=== PATIENT | female | born 2000 | race Caucasian/White ===

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

== ENCOUNTER 2019-02-27 13:26 | Emergency (ER) | payer OTHER ==
[2019-02-27 13:38] VITALS: BP 119/74; PULSE 99; RESP 20; TEMP 98.7
--- NOTE | 2019-02-27 14:32 | XR ---
EXAMINATION TYPE: XR chest 2V DATE OF EXAM: 02/27/2019 COMPARISON: 04/14/2017 HISTORY: Cough and congestion TECHNIQUE: Frontal and lateral views of the chest are obtained. FINDINGS: There is no focal air space opacity, pleural effusion, or pneumothorax seen. The cardiac silhouette size is within normal limits. The osseous structures are intact. IMPRESSION: No acute cardiopulmonary process.
[2019-02-27] MEDS ORDERED: DEXAMETHASONE 4 MG TAB PO STA (15:11)
--- NOTE | 2019-02-27 15:15 | ED ---
General Adult HPI - General Chief complaint: Upper Respiratory Infection Stated complaint: Cold symptoms Time Seen by Provider: 02/27/19 13:39 Source: patient, RN notes reviewed Mode of arrival: ambulatory Limitations: no limitations - History of Present Illness Initial comments: 18-year-old female presents to the emergency department for chief Cough co ngestion and sore throat 4 days. Patient denies any difficulty breathing or shortness of breath. Denies any chest pain. States she does have a productive cough. Patient does admit to history of asthma. Denies fevers or chills.Patient has no other complaints at this time including shortness of breath, chest pain, abdominal pain, nausea or vomiting, headache, or visual changes. - Related Data Home Medications Medication Instructions Recorded Confirmed Naproxen Sodium [Aleve] 220 mg PO BID PRN 10/03/17 02/27/19 Previous Rx's Medication Instructions Recorded Loratadine [Claritin] 10 mg PO DAILY #20 tab 02/27/19 Allergies Allergy/AdvReac Type Severity Reaction Status Date / Time No Known Allergies Allergy Verified 02/27/19 13:58 Review of Systems ROS Statement: Those systems with pertinent positive or pertinent negative responses have been documented in the HPI. ROS Other: All systems not noted in ROS Statement are negative. Past Medical History Past Medical History: Asthma, Seizure Disorder History of Any Multi-Drug Resistant Organisms: None Reported Past Surgical History: No Surgical Hx Reported Past Psychological History: Anxiety, Panic Disorder Smoking Status: Current every day smoker Past Alcohol Use History: None Reported Past Drug Use History: Marijuana General Exam Limitations: no limitations General appearance: alert, in no apparent distress Head exam: Present: atraumatic, normocephalic, normal inspection Eye exam: Present: normal appearance, PERRL, EOMI. Absent: scleral icterus, c onjunctival injection, periorbital swelling ENT exam: Present: normal exam, normal oropharynx (Uvula midline, nonerythematous), mucous membranes moist, TM's normal bilaterally, normal external ear exam Neck exam: Present: normal inspection. Absent: tenderness, meningismus, lymphadenopathy Respiratory exam: Present: normal lung sounds bilaterally. Absent: respiratory distress, wheezes, rales, rhonchi, stridor Cardiovascular Exam: Present: regular rate, normal rhythm, normal heart sounds. Absent: systolic murmur, diastolic murmur, rubs, gallop, clicks GI/Abdominal exam: Present: soft, normal bowel sounds. Absent: distended, tenderness, guarding, rebound, rigid Neurological exam: Present: alert, oriented X3, CN II-XII intact Psychiatric exam: Present: normal affect, normal mood Course Vital Signs 02/27/19 13:36 Temperature 98.7 F Pulse Rate 99 Respiratory 20 Rate Blood Pressure 119/74 O2 Sat by Pulse 99 Oximetry Medical Decision Making - Medical Decision Making 18-year-old female with cough congestion sore throat 4 days. Lungs are clear to auscultation bilaterally, no wheezing. Vitals are stable. X-rays negative for pneumonia. Strep is negative. Patient will be treated with Decadron as she has history for asthma. No antibiotics at this time as she has only had sym ptoms for 4 days and this is likely viral in nature.. Will follow up with primary care will return here if she has any worsening symptoms. - Lab Data Lab Results 02/27/19 Range/Units 14:15 Group A Strep Rapid Negative (Negative) Disposition Clinical Impression: Upper respiratory infection Disposition: HOME SELF-CARE Condition: Good Instructions (If sedation given, give patient instructions): Upper Respiratory Infection (ED) Additional Instructions: Please drink plenty of fluids. Take [id number] cold and flu medications. Follow-up with primary care in 1-2 days. Return here if your are having worsening symptoms. Prescriptions: Loratadine [Claritin] 10 mg PO DAILY #20 tab Is patient prescribed a controlled substance at d/c from ED?: No Referrals: Deonte Turk DO [Primary Care Provider] - 1-2 days Time of Disposition: 15:14
== END 2019-02-27 15:32 | disposition home or self-care (01) ==
LOC: EC 13:26
DX: J06.9 Acute upper respiratory infection, unspecified (principal); F17.200 Nicotine dependence, unspecified, uncomplicated; Z87.09 Personal history of other diseases of the respiratory system
CPT/HCPCS: 87081; 87430; 71046; 99283; J8540

== ENCOUNTER 2019-03-17 21:50 | Emergency (ER) | payer OTHER ==
[2019-03-17 23:11] LABS: Appearance,Urine Clear (Clear); Bacteria,Urine Occasional /hpf; Bilirubin,Urine Negative (Negative); Blood,Urine Negative (Negative); Color,Urine Yellow; Glucose,Urine (UA) Negative (Negative); Ketones,Urine Negative (Negative); Leukocyte Esterase,Urine Large (Negative); Mucus,Urine Rare /hpf; Nitrite,Urine Negative (Negative); Protein,Urine Negative (Negative); RBC,Urine 2 /hpf (0-5)
[2019-03-17] MEDS ORDERED: SODIUM CHLORIDE 0.9% 1,000 ML IV ONE (23:29)
[2019-03-17 23:54] LABS: Basophils % (A) 0 %; Eosinophils # (A) 0.2 k/uL (0-0.7); Eosinophils % (A) 2 %; HCT 38.1 % (34.0-46.0); HGB 12.5 gm/dL (11.4-16.0); Lymphocytes # (A) 2.4 k/uL (1.0-4.8); Lymphocytes % (A) 28 %; MCH 29.3 pg (25.0-35.0); MCHC 32.9 g/dL (31.0-37.0); MCV 89.2 fL (80.0-100.0); Mean Platelet Volume 7.1; Monocytes # (A) 0.7 k/uL (0-1.0); Monocytes % (A) 8 %; Neutrophils % (A) 59 %; Platelet Count 305 k/uL (150-450); RBC 4.27 m/uL (3.80-5.40); RDW 12.8 % (11.5-15.5); WBC 8.5 k/uL (4.0-11.0)
[2019-03-18] LABS: Anion Gap 7 mmol/L; Blood Urea Nitrogen 8 mg/dL (7-17); Carbon Dioxide 26 mmol/L (22-30); Chloride 109 mmol/L (98-107); Glucose 87 mg/dL (74-99); Sodium 142 mmol/L (137-145)
[2019-03-18 00:01] LABS: ALT 8 U/L (9-52); AST 15 U/L (14-36); African American GFR (CKD) >90 (>60 ml/min/1.73 sqM); Albumin 4.1 g/dL (3.5-5.0); Alkaline Phosphatase 60 U/L (38-126); Calcium 9.3 mg/dL (8.4-10.2); Total Bilirubin 0.2 mg/dL (0.2-1.3); Total Protein 7.3 g/dL (6.3-8.2)
[2019-03-18 00:17] LABS: HCG,Quantitative Serum 235.9 mIU/mL
[2019-03-18] MEDS ORDERED: CEPHALEXIN 500MG STARTER PACK 4 CAP BTL PO STA (00:42)
--- NOTE | 2019-03-18 01:07 | US ---
EXAM: US Pelvis, Transvaginal CLINICAL HISTORY: ITS.REASON US Reason: Pain TECHNIQUE: Real-time transvaginal pelvic ultrasound (complete) with image documentation. Transvaginal imaging was used for better evaluation of the endometrium and adnexa. COMPARISON: No relevant prior studies available. FINDINGS: Uterus/cervix: 7.5 cm. Normal endometrial stripe thickness at 3 mm. No myometrial mass. Right ovary: 2.5 cm. 1.2 cm hyperechoic lesion. Normal blood flow. Left ovary: 2.5 cm. No mass. Normal blood flow. Free fluid: Trace free fluid in the cul-de-sac. IMPRESSION: 1.2 cm likely hemorrhagic cyst in the right ovary. No evidence of torsion. No evidence of intrauterine .
--- NOTE | 2019-03-18 02:14 | ED ---
Female Urogenital HPI <Rizwana Villatoro - Last Filed: 03/18/19 02:16> - General Source: patient Mode of arrival: ambulatory Limitations: no limitations <Amy Saenz - Last Filed: 03/18/19 03:43> - General Chief complaint: Vaginal Bleeding Stated complaint: Poss Miscarriage-vaginal bleeding Time Seen by Provider: 03/17/19 23:27 - History of Present Illness Initial comments: 18-year-old female patient presents to the emergency department today for evaluation of vaginal bleeding. Patient states she has had vaginal bleeding for the last 2 weeks. Patient states his been similar to her normal period flow. States her last menstrual period was the beginning of February. Patient states that over the last couple days she has been having increased pain to the suprapubic region and to the low back. Patient states the pain has been so bad at times that she is doubled over and cried. Patient states she is having some mild dysuria, denies any urinary urgency or frequency. States she has had some nausea and one episode of vomiting. She states she has been chilled at times with denies any documented temperatures. Patient did not check a test at home but is concerned she may be having a miscarriage due to symptoms she is right on the Internet. She denies any concern for sexually transmitted infections. Denies any abnormal vaginal discharge prior to onset of bleeding. Patient denies any recent rash, shortness breath, chest pain, diarrhea, constipation, back pain, numbness, tingling, dizziness, weakness, headache, visual changes, or any other complaints. (Amy Saenz) - Related Data Home Medications Medication Instructions Recorded Confirmed Naproxen Sodium [Aleve] 220 mg PO BID PRN 10/03/17 03/17/19 Allergies Allergy/AdvReac Type Severity Reaction Status Date / Time carolyn Allergy Swelling Verified 03/17/19 23:32 Review of Systems ROS Other: All systems not noted in ROS Statement are negative. <Rizwana Villatoro - Last Filed: 03/18/19 02:16> ROS Other: All systems not noted in ROS Statement are negative. <Amy Saenz - Last Filed: 03/18/19 03:43> ROS Statement: Those systems with pertinent positive or pertinent negative responses have been documented in the HPI. Past Medical History Past Medical History: Asthma, Seizure Disorder History of Any Multi-Drug Resistant Organisms: None Reported Past Surgical History: No Surgical Hx Reported Past Psychological History: Anxiety, Depression, Panic Disorder, PTSD Smoking Status: Current every day smoker Past Alcohol Use History: None Reported Past Drug Use History: Marijuana <Amy Saenz M - Last Filed: 03/18/19 03:43> General Exam Limitations: no limitations General appearance: alert, in no apparent distress, other (Physical well- developed, well-nourished adult female patient in no acute distress. Vital signs upon presentation are temperature 99.5F while pulse 65, respirations 17, blood pressure 102/71, pulse ox 100% on room air.) Eye exam: Present: normal appearance, PERRL, EOMI. Absent: scleral icterus, conjunctival injection, periorbital swelling ENT exam: Present: normal exam, normal oropharynx, mucous membranes moist Respiratory exam: Present: normal lung sounds bilaterally. Absent: respiratory distress, wheezes, rales, rhonchi, stridor Cardiovascular Exam: Present: regular rate, normal rhythm, normal heart sounds. Absent: systolic murmur, diastolic murmur, rubs, gallop, clicks GI/Abdominal exam: Present: soft, normal bowel sounds. Absent: distended, tenderness, guarding, rebound, rigid External exam: Present: normal external exam Speculum exam: Present: vaginal bleeding (Dark red vaginal bleeding), other (Cervical os is closed). Absent: normal speculum exam By manual exam: Present: normal by manual exam Neurological exam: Present: alert, oriented X3, CN II-XII intact Psychiatric exam: Present: normal affect, normal mood Skin exam: Present: warm, dry, intact, normal color. Absent: rash <Amy Saenz M - Last Filed: 03/18/19 03:43> Course Vital Signs 03/17/19 03/18/19 22:37 02:33 Temperature 99.5 F 98 F Pulse Rate 65 73 Respiratory 17 18 Rate Blood Pressure 102/71 122/70 O2 Sat by Pulse 100 97 Oximetry Medical Decision Making - Lab Data Result diagrams: 03/17/19 23:46 03/17/19 23:46 <Rizwana Villatoro P - Last Filed: 03/18/19 02:16> - Lab Data Result diagrams: 03/17/19 23:46 03/17/19 23:46 - Radiology Data Radiology results: report reviewed <Amy Saenz - Last Filed: 03/18/19 03:43> - Medical Decision Making 18-year-old female patient presented to the emergency department today for a 2 week history of vaginal bleeding. Over the last couple days patient is had increased pelvic and low back pain. Physical examination revealed a soft nontender abdomen. Pelvic examination was performed and showed evidence of dark red vaginal bleeding with no clots present in the vaginal vault. Cervical os is closed. Transvaginal ultrasound was obtained and showed evidence for a 1.2 cm hemorrhagic cyst right ovary. Uterus is normal. Patient's hCG levels 236. My attending Dr. Villatoro did discuss the case with the on-call cold saw operator Dr. Schneider. There is concern for miscarriage. She is instructed to call the office in the morning to make an appointment. She is instructed to have repeat labs performed on to determine hCG level. Return parameters were discussed in detail. Patient verbalizes understanding and agrees with this plan (Amy Saenz) - Lab Data Lab Results 03/17/19 03/17/19 03/17/19 Range/Units 22:41 22:41 23:06 WBC (4.0-11.0) k/uL RBC (3.80-5.40) m/uL Hgb (11.4-16.0) gm/dL Hct (34.0-46.0) % MCV (80.0-100.0) fL MCH (25.0-35.0) pg MCHC (31.0-37.0) g/dL RDW (11.5-15.5) % Plt Count (150-450) k/uL Neutrophils % % Lymphocytes % % Monocytes % % Eosinophils % % Basophils % % Neutrophils # (1.3-7.7) k/uL Lymphocytes # (1.0-4.8) k/uL Monocytes # (0-1.0) k/uL Eosinophils # (0-0.7) k/uL Basophils # (0-0.2) k/uL Sodium (137-145) mmol/L Potassium (3.5-5.1) mmol/L Chloride (98-107) mmol/L Carbon Dioxide (22-30) mmol/L Anion Gap mmol/L BUN (7-17) mg/dL Creatinine (0.52-1.04) mg/dL Est GFR (CKD-EPI)AfAm (>60 ml/min/1.73 sqM) Est GFR (CKD-EPI)NonAf (>60 ml/min/1.73 sqM) Glucose (74-99) mg/dL Calcium (8.4-10.2) mg/dL Total Bilirubin (0.2-1.3) mg/dL AST (14-36) U/L ALT (9-52) U/L Alkaline Phosphatase (38-126) U/L Total Protein (6.3-8.2) g/dL Albumin (3.5-5.0) g/dL HCG, Qual Detected HCG, Quant mIU/mL Urine Color Yellow Urine Appearance Clear (Clear) Urine pH 6.0 (5.0-8.0) Ur Specific [place] 1.010 (1.001-1.035) Urine Protein Negative (Negative) Urine Glucose (UA) Negative (Negative) Urine Ketones Negative (Negative) Urine Blood Negative (Negative) Urine Nitrite Negative (Negative) Urine Bilirubin Negative (Negative) Urine Urobilinogen 3.0 (<2.0) mg/dL Ur Leukocyte Esterase Large H (Negative) Urine RBC 2 (0-5) /hpf Urine WBC 75 H (0-5) /hpf Urine Bacteria Occasional H (None) /hpf Urine Mucus Rare H (None) /hpf Urine HCG, Qual Detected (Not Detectd) Blood Type Blood Type Recheck 03/17/19 03/17/19 03/17/19 Range/Units 23:46 23:46 23:46 WBC 8.5 (4.0-11.0) k/uL RBC 4.27 (3.80-5.40) m/uL Hgb 12.5 (11.4-16.0) gm/dL Hct 38.1 (34.0-46.0) % MCV 89.2 (80.0-100.0) fL MCH 29.3 (25.0-35.0) pg MCHC 32.9 (31.0-37.0) g/dL RDW 12.8 (11.5-15.5) % Plt Count 305 (150-450) k/uL Neutrophils % 59 % Lymphocytes % 28 % Monocytes % 8 % Eosinophils % 2 % Basophils % 0 % Neutrophils # 5.0 (1.3-7.7) k/uL Lymphocytes # 2.4 (1.0-4.8) k/uL Monocytes # 0.7 (0-1.0) k/uL Eosinophils # 0.2 (0-0.7) k/uL Basophils # 0.0 (0-0.2) k/uL Sodium 142 (137-145) mmol/L Potassium 4.0 (3.5-5.1) mmol/L Chloride 109 H (98-107) mmol/L Carbon Dioxide 26 (22-30) mmol/L Anion Gap 7 mmol/L BUN 8 (7-17) mg/dL Creatinine 0.66 (0.52-1.04) mg/dL Est GFR (CKD-EPI)AfAm >90 (>60 ml/min/1.73 sqM) Est GFR (CKD-EPI)NonAf >90 (>60 ml/min/1.73 sqM) Glucose 87 (74-99) mg/dL Calcium 9.3 (8.4-10.2) mg/dL Total Bilirubin 0.2 (0.2-1.3) mg/dL AST 15 (14-36) U/L ALT 8 L (9-52) U/L Alkaline Phosphatase 60 (38-126) U/L Total Protein 7.3 (6.3-8.2) g/dL Albumin 4.1 (3.5-5.0) g/dL HCG, Qual HCG, Quant 235.9 mIU/mL Urine Color Urine Appearance (Clear) Urine pH (5.0-8.0) Ur Specific [place] (1.001-1.035) Urine Protein (Negative) Urine Glucose (UA) (Negative) Urine Ketones (Negative) Urine Blood (Negative) Urine Nitrite (Negative) Urine Bilirubin (Negative) Urine Urobilinogen (<2.0) mg/dL Ur Leukocyte Esterase (Negative) Urine RBC (0-5) /hpf Urine WBC (0-5) /hpf Urine Bacteria (None) /hpf Urine Mucus (None) /hpf Urine HCG, Qual (Not Detectd) Blood Type A Positive Blood Type Recheck [facility] ONLY - Radiology Data Transvaginal ultrasound was obtained. Report was reviewed in its entirety. Impression by Dr. Acosta shows 1.2 cm likely hemorrhagic cyst in the right ovary. No evidence of torsion. No evidence of intrauterine . (Amy Saenz) Disposition <Rizwana Villatoro - Last Filed: 03/18/19 02:16> Is patient prescribed a controlled substance at d/c from ED?: No <Amy Saenz - Last Filed: 03/18/19 03:43> Clinical Impression: Vaginal bleeding affecting early Disposition: HOME SELF-CARE Condition: Stable Instructions (If sedation given, give patient instructions): Miscarriage (ED) Additional Instructions: Contact Dr Schneider's office today to schedule follow up You need to return to the out patient lab for repeat blood work on Referrals: Deonte Turk DO [Primary Care Provider] - 1-2 days
[2019-03-18 02:34] VITALS: BP 122/70; PULSE 73; RESP 18; TEMP 98
== END 2019-03-18 02:33 | disposition home or self-care (01) ==
LOC: EC 21:50
DX: O20.9 Hemorrhage in early pregnancy, unspecified (principal); O34.80 Maternal care for other abnormalities of pelvic organs, unspecified trimester; N83.291 Other ovarian cyst, right side; O99.330 Smoking (tobacco) complicating pregnancy, unspecified trimester; F17.200 Nicotine dependence, unspecified, uncomplicated; Z3A.00 Weeks of gestation of pregnancy not specified; Z91.018 Allergy to other foods
CPT/HCPCS: 36415; 76801; 76817; 80053; 81001; 81025; 84702; 84703; 85025; 86900; 86901; 87077; 87086; 87186; 99284

== ENCOUNTER 2019-11-16 20:40 | Emergency (ER) | payer OTHER ==
[2019-11-16 20:44] VITALS: RESP 18
[2019-11-16] MEDS ORDERED: ACETAMINOPHEN TAB 325 MG TAB PO STA (21:05)
[2019-11-16 21:32] LABS: Appearance,Urine Clear (Clear); Bacteria,Urine Rare /hpf; Bilirubin,Urine Negative (Negative); Blood,Urine Trace (Negative); Color,Urine Light Yellow; Glucose,Urine (UA) Negative (Negative); Ketones,Urine Negative (Negative); Leukocyte Esterase,Urine Negative (Negative); Mucus,Urine Rare /hpf; Nitrite,Urine Negative (Negative); Protein,Urine Negative (Negative); RBC,Urine <1 /hpf (0-5); Specific Gravity,Urine 1.006 (1.001-1.035); Squamous Epithelial Cell,Urine 1 /hpf (0-4); Urobilinogen,Urine <2.0 mg/dL (<2.0); WBC,Urine <1 /hpf (0-5)
--- NOTE | 2019-11-16 21:44 | XR ---
EXAMINATION TYPE: XR chest 2V DATE OF EXAM: 11/16/2019 COMPARISON: 02/27/2019 HISTORY: Cough TECHNIQUE: 2 views FINDINGS: Heart and mediastinum are normal. Lungs are clear. Diaphragm is normal. Bony thorax is norm al. IMPRESSION: Normal chest. Normal heart. No change.
[2019-11-16 22:41] VITALS: TEMP 100
[2019-11-16] MEDS ORDERED: IBUPROFEN 600 MG STARTER PACK 4 TAB BTL PO STA (22:44)
--- NOTE | 2019-11-16 22:45 | ED ---
General Adult HPI - General Chief complaint: Fever Stated complaint: Fever Time Seen by Provider: 11/16/19 20:47 Source: patient, RN notes reviewed, old records reviewed Mode of arrival: ambulatory Limitations: no limitations - History of Present Illness Initial comments: 19-year-old female patient presents with history of asthma presents to ED for chief complaint of cough congestion waxing and waning fevers. Patient reports she hasn't some subjective fevers and chills. Patient reports that she had some transient anterior chest wall pain while shivering. Denies any pain at this time. Kath any shortness of breath this time. Denies any other complaints at this time. Systemic: Pt denies fatigue, fever/chills, rash. Pt denies weakness, night swe ats, weight loss. Neuro: Pt denies headache, visual disturbances, syncope or pre-syncope. HEENT: Pt denies ocular discharge or irritation, otalgia, rhinorrhea, pharyngitis or notable lymphadenopathy. Cardiopulmonary: Pt denies chest pain, SOB, heart palpitations, dyspnea on exertion. Abdominal/GI: Pt denies abdominal pain, n/v/d. : Pt denies dysuria, burning w/ urination, frequency/urgency. Denies new onset urinary or bowel incontinence. MSK: Pt denies myalgia, loss of strength or function in extremities. Neuro: Pt denies new onset weakness, paresthesias. - Related Data Home Medications Medication Instructions Recorded Confirmed Naproxen Sodium [Aleve] 220 mg PO BID PRN 10/03/17 03/17/19 Previous Rx's Medication Instructions Recorded Albuterol Inhaler [Ventolin Hfa 1 - 2 puff INHALATION Q4-6H PRN #1 11/16/19 Inhaler] inhaler Allergies Allergy/AdvReac Type Severity Reaction Status Date / Time carolyn Allergy Swelling Verified 11/16/19 20:44 Review of Systems ROS Statement: Those systems with pertinent positive or pertinent negative responses have been documented in the HPI. ROS Other: All systems not noted in ROS Statement are negative. Past Medical History Past Medical History: Asthma, Seizure Disorder History of Any Multi-Drug Resistant Organisms: None Reported Past Surgical History: No Surgical Hx Reported Past Psychological History: Anxiety, Depression, Panic Disorder, PTSD Smoking Status: Current every day smoker Past Alcohol Use History: None Reported Past Drug Use History: Marijuana General Exam - General Exam Comments Initial Comments: Constitutional: NAD, AOX3, Pt has pleasant affect. HEENT: NC/AT, trachea midline, neck supple, no lymphadenopathy. Posterior pharynx non erythematous, without exudates. External ears appear normal, without discharge. Mucous membranes moist. Eyes PERRLA, EOM intact. There is no scleral icterus. No pallor noted. Cardiopulmonary: RRR, no murmurs, rubs or gallops, no JVD noted. Lungs CTAB in anterior and posterior vega. No peripheral edema. Abdominal exam: Abdomen soft and non-distended. Abdomen non-tender to palpation in all 4 quadrants. Bowel sounds active in LLQ. No hepatosplenomegaly. No ecchymosis Neuro: CN II-XII grossly intact. No nuchal rigidity. No raccon eyes, no abdul sign, no hemotympanum. No cervical spinal tenderness. MSK: No posterior calf tenderness bilaterally, homans sign negative bilaterally. Posterior tibialis and radial pulse +2 bilaterally. Sensation intact in upper and lower extremities. Full active ROM in upper and lower extremities, 5/5 stregnth. Limitations: no limitations Course Vital Signs 11/16/19 11/16/19 20:41 22:40 Temperature 101.6 F H 100 F H Pulse Rate 101 H Respiratory 18 Rate Blood Pressure 104/61 O2 Sat by Pulse 99 Oximetry Medical Decision Making - Medical Decision Making 19-year-old female patient presents with history of asthma presents to ED for chief complaint of cough congestion waxing and waning fevers. Patient reports she hasn't some subjective fevers and chills. Patient reports that she had some transient anterior chest wall pain while shivering. Denies any pain at this time. Kath any shortness of breath this time. Denies any other complaints at this time. Patient vital signs displayed fever, patient history plant electrician. Physical exam test acute pathology per laboratory investigations revealed a infl uenza A, negative UA, negative ECG. EKG is nonischemic. Chest x-ray displayed no acute process. Patient was experiencing Respiratory infection most likely viral in nature. Continue to use Tylenol and Motrin. Further investigations were offered to patient she declined, would prefer for her to go home. Will follow up with primary care provider tomorrow and will return to ER if condition worsens. Case discussed with Dr. Trachey. Patient not wheezing at this time, however does have history of asthma, albuterol inhaler is refilled for patient. - Lab Data Lab Results 11/16/19 11/16/19 11/16/19 Range/Units 21:15 21:15 21:15 Urine Color Light Yellow Urine Appearance Clear (Clear) Urine pH 8.0 (5.0-8.0) Ur Specific [place] 1.006 (1.001-1.035) Urine Protein Negative (Negative) Urine Glucose (UA) Negative (Negative) Urine Ketones Negative (Negative) Urine Blood Trace H (Negative) Urine Nitrite Negative (Negative) Urine Bilirubin Negative (Negative) Urine Urobilinogen <2.0 (<2.0) mg/dL Ur Leukocyte Esterase Negative (Negative) Urine RBC <1 (0-5) /hpf Urine WBC <1 (0-5) /hpf Ur Squamous Epith Cells 1 (0-4) /hpf Urine Bacteria Rare H (None) /hpf Urine Mucus Rare H (None) /hpf Urine HCG, Qual Not Detected (Not Detectd) Influenza Type A RNA Not Detected (Not Detectd) Influenza Type B (PCR) Not Detected (Not Detectd) - EKG Data -: EKG Interpreted by Me (and Dr. Lucia) EKG Comments: Ventricular rate 79, painful and 20, QRS 94, QT/QTC 378/433. Normal sinus sinus rhythm. Incomplete right bundle branch block. No concern for acute ischemia at this time. Disposition Clinical Impression: Viral syndrome, Cough, Fever Disposition: HOME SELF-CARE Condition: Stable Instructions (If sedation given, give patient instructions): Acute Cough (ED) Additional Instructions: Follow-up with primary care provider tomorrow. Continue to use tylenol and Motrin as needed for fever. Return to ER if condition worsens in any way. Prescriptions: Albuterol Inhaler [Ventolin Hfa Inhaler] 1 - 2 puff INHALATION Q4-6H PRN #1 inhaler PRN Reason: Cough Is patient prescribed a controlled substance at d/c from ED?: No Referrals: Deonte Turk DO [Primary Care Provider] - 1-2 days
[2019-11-16 22:54] VITALS: BP 111/74; PULSE 90
== END 2019-11-16 22:49 | disposition home or self-care (01) ==
LOC: EC 20:40
DX: B34.9 Viral infection, unspecified (principal); F17.200 Nicotine dependence, unspecified, uncomplicated; Z91.018 Allergy to other foods; Z87.09 Personal history of other diseases of the respiratory system
CPT/HCPCS: 71046; 81001; 81025; 87502; 93005; 99284

== ENCOUNTER 2020-11-18 12:52 | Emergency (ER) | payer OTHER ==
[2020-11-18 12:57] VITALS: RESP 18; TEMP 97.8
[2020-11-18] MEDS ORDERED: METOCLOPRAMIDE 5 MG/ML 2 ML VIAL IVP STA (14:33)
[2020-11-18] MEDS ORDERED: SODIUM CHLORIDE 0.9% 2,000 ML IV STA (14:33)
[2020-11-18] MEDS ORDERED: diphenhydrAMINE 50 MG/ML 1 ML VIAL IVP STA (14:33)
--- NOTE | 2020-11-18 14:35 | ED ---
General Adult HPI - General Chief complaint: Nausea/Vomiting/Diarrhea Stated complaint: 4wks preg, vomiting Time Seen by Provider: 11/18/20 14:16 Source: patient, RN notes reviewed Mode of arrival: wheelchair Limitations: no limitations - History of Present Illness Initial comments: 20-year-old female currently 5 weeks with an LMP of 11/06/2020 presents to the emergency room for a chief complaint of nausea. Patient has had nausea and vomiting for the past week associated with her . States she is able to run some water but otherwise has been vomiting. Patient states she does not have any abdominal pain. No diarrhea. No vaginal bleeding or discomfort. Patient does have an appointment with STANDARD MACHINE STITCHER in the next few weeks scheduled. Patient has no other complaints at this time including shortness of breath, chest pain, abdominal pain, headache, or visual changes. - Related Data Previous Rx's Medication Instructions Recorded Doxylamine/Pyridoxine HCl (B6) 2 tab PO HS #28 tab 11/18/20 [Wade Cotto 10-10 mg Tablet] Allergies Allergy/AdvReac Type Severity Reaction Status Date / Time carolyn Allergy Swelling Verified 11/18/20 14:43 Review of Systems ROS Statement: Those systems with pertinent positive or pertinent negative responses have been documented in the HPI. ROS Other: All systems not noted in ROS Statement are negative. Past Medical History Past Medical History: Asthma, Seizure Disorder Additional Past Medical History / Comment(s): neuropathy History of Any Multi-Drug Resistant Organisms: None Reported Past Surgical History: No Surgical Hx Reported Past Psychological History: Anxiety, Depression, Panic Disorder, PTSD Smoking Status: Current every day smoker Past Alcohol Use History: None Reported Past Drug Use History: Marijuana General Exam - General Exam Comments Initial Comments: Patient is a well-appearing well-nourished female sitting in bed answering que stions appropriately, in no acute distress Limitations: no limitations General appearance: alert, in no apparent distress Head exam: Present: atraumatic Eye exam: Present: normal appearance, PERRL, EOMI. Absent: scleral icterus ENT exam: Present: normal exam, mucous membranes moist Neck exam: Present: normal inspection, full ROM. Absent: tenderness Respiratory exam: Present: normal lung sounds bilaterally. Absent: respiratory distress, wheezes, rales, rhonchi, stridor Cardiovascular Exam: Present: regular rate, normal rhythm, normal heart sounds. Absent: clicks GI/Abdominal exam: Present: soft, normal bowel sounds. Absent: distended, tenderness, guarding, rebound, rigid Neurological exam: Present: alert Course Vital Signs 11/18/20 12:55 Temperature 97.8 F Pulse Rate 101 H Respiratory 18 Rate Blood Pressure 128/78 O2 Sat by Pulse 100 Oximetry Medical Decision Making - Medical Decision Making Vitals are stable. Patient is a pleasant, well-appearing female. CBC shows minimal leukocytosis likely reactive to vomiting. CMP does reveal minimal hypokalemia, replaced orally. Urinalysis does show 4+ ketones. Patient was given 2 L of fluids. Patient was given Reglan and Benadryl and did have significant improvement in symptoms. She is now hungry and tolerating oral intake including crackers and juices. Patient does have an appointment with her STANDARD MACHINE STITCHER next few weeks but will call tomorrow to let them know she was in the ER for this. We will start her on Diclegis. However I discussed that she is dehydrated and if she is not able to tolerate oral intake at home she does need to return to the emergency room. Strict parameters discussed. Patient and her mother are agreeable. I discussed this case with attending Dr. Lee who agrees with this assessment and treatment plan. - Lab Data Result diagrams: 11/18/20 14:57 11/18/20 14:57 Lab Results 11/18/20 11/18/20 11/18/20 Range/Units 14:57 14:57 14:57 WBC 11.7 H (3.8-10.6) k/uL RBC 4.63 (3.80-5.40) m/uL Hgb 14.4 (11.4-16.0) gm/dL Hct 40.9 (34.0-46.0) % MCV 88.3 (80.0-100.0) fL MCH 31.0 (25.0-35.0) pg MCHC 35.1 (31.0-37.0) g/dL RDW 12.2 (11.5-15.5) % Plt Count 295 (150-450) k/uL MPV 7.3 Neutrophils % 73 % Lymphocytes % 18 % Monocytes % 7 % Eosinophils % 0 % Basophils % 0 % Neutrophils # 8.5 H (1.3-7.7) k/uL Lymphocytes # 2.1 (1.0-4.8) k/uL Monocytes # 0.9 (0-1.0) k/uL Eosinophils # 0.0 (0-0.7) k/uL Basophils # 0.0 (0-0.2) k/uL Sodium (137-145) mmol/L Potassium (3.5-5.1) mmol/L Chloride (98-107) mmol/L Carbon Dioxide (22-30) mmol/L Anion Gap mmol/L BUN (7-17) mg/dL Creatinine (0.52-1.04) mg/dL Est GFR (CKD-EPI)AfAm (>60 ml/min/1.73 sqM) Est GFR (CKD-EPI)NonAf (>60 ml/min/1.73 sqM) Glucose (74-99) mg/dL Calcium (8.4-10.2) mg/dL Total Bilirubin (0.2-1.3) mg/dL AST (14-36) U/L ALT (4-34) U/L Alkaline Phosphatase (38-126) U/L Total Protein (6.3-8.2) g/dL Albumin (3.5-5.0) g/dL Amylase (30-110) U/L Lipase (23-300) U/L Urine Color Yellow Urine Appearance Cloudy H (Clear) Urine pH 6.0 (5.0-8.0) Ur Specific [place] 1.033 (1.001-1.035) Urine Protein 1+ H (Negative) Urine Glucose (UA) Negative (Negative) Urine Ketones 4+ H (Negative) Urine Blood Negative (Negative) Urine Nitrite Negative (Negative) Urine Bilirubin Negative (Negative) Urine Urobilinogen 2.0 (<2.0) mg/dL Ur Leukocyte Esterase Trace H (Negative) Urine WBC 4 (0-5) /hpf Ur Squamous Epith Cells 5 H (0-4) /hpf Urine Mucus Moderate H (None) /hpf Urine HCG, Qual Detected (Not Detectd) 11/18/20 Range/Units 14:57 WBC (3.8-10.6) k/uL RBC (3.80-5.40) m/uL Hgb (11.4-16.0) gm/dL Hct (34.0-46.0) % MCV (80.0-100.0) fL MCH (25.0-35.0) pg MCHC (31.0-37.0) g/dL RDW (11.5-15.5) % Plt Count (150-450) k/uL MPV Neutrophils % % Lymphocytes % % Monocytes % % Eosinophils % % Basophils % % Neutrophils # (1.3-7.7) k/uL Lymphocytes # (1.0-4.8) k/uL Monocytes # (0-1.0) k/uL Eosinophils # (0-0.7) k/uL Basophils # (0-0.2) k/uL Sodium 133 L (137-145) mmol/L Potassium 3.3 L (3.5-5.1) mmol/L Chloride 100 (98-107) mmol/L Carbon Dioxide 20 L (22-30) mmol/L Anion Gap 13 mmol/L BUN 16 (7-17) mg/dL Creatinine 0.57 (0.52-1.04) mg/dL Est GFR (CKD-EPI)AfAm >90 (>60 ml/min/1.73 sqM) Est GFR (CKD-EPI)NonAf >90 (>60 ml/min/1.73 sqM) Glucose 89 (74-99) mg/dL Calcium 9.9 (8.4-10.2) mg/dL Total Bilirubin 1.1 (0.2-1.3) mg/dL AST 21 (14-36) U/L ALT 11 (4-34) U/L Alkaline Phosphatase 58 (38-126) U/L Total Protein 8.0 (6.3-8.2) g/dL Albumin 4.8 (3.5-5.0) g/dL Amylase 52 (30-110) U/L Lipase 92 (23-300) U/L Urine Color Urine Appearance (Clear) Urine pH (5.0-8.0) Ur Specific [place] (1.001-1.035) Urine Protein (Negative) Urine Glucose (UA) (Negative) Urine Ketones (Negative) Urine Blood (Negative) Urine Nitrite (Negative) Urine Bilirubin (Negative) Urine Urobilinogen (<2.0) mg/dL Ur Leukocyte Esterase (Negative) Urine WBC (0-5) /hpf Ur Squamous Epith Cells (0-4) /hpf Urine Mucus (None) /hpf Urine HCG, Qual (Not Detectd) Disposition Clinical Impression: Nausea and vomiting during Disposition: HOME SELF-CARE Condition: Good Instructions (If sedation given, give patient instructions): Hyperemesis Gravidarum (ED) Additional Instructions: Please take likely just as directed. Please follow-up with your STANDARD MACHINE STITCHER. Call tomorrow to let them know that you were seen in the ER for nausea. If you are not able to tolerate oral intake at home you need to return to the emergency room. Prescriptions: Doxylamine/Pyridoxine HCl (B6) [Wade Cotto 10-10 mg Tablet] 2 tab PO HS #28 tab Is patient prescribed a controlled substance at d/c from ED?: No Referrals: Deonte uTrk DO [Primary Care Provider] - 1-2 days Time of Disposition: 16:13
[2020-11-18 15:17] LABS: Basophils % (A) 0 %; Eosinophils % (A) 0 %; HCT 40.9 % (34.0-46.0); HGB 14.4 gm/dL (11.4-16.0); Lymphocytes # (A) 2.1 k/uL (1.0-4.8); Lymphocytes % (A) 18 %; MCHC 35.1 g/dL (31.0-37.0); MCV 88.3 fL (80.0-100.0); Mean Platelet Volume 7.3; Monocytes # (A) 0.9 k/uL (0-1.0); Monocytes % (A) 7 %; Neutrophils # (A) 8.5 k/uL (1.3-7.7); Neutrophils % (A) 73 %; Platelet Count 295 k/uL (150-450); RBC 4.63 m/uL (3.80-5.40); RDW 12.2 % (11.5-15.5); WBC 11.7 k/uL (3.8-10.6)
[2020-11-18 15:20] LABS: Appearance,Urine Cloudy (Clear); Bilirubin,Urine Negative (Negative); Blood,Urine Negative (Negative); Color,Urine Yellow; Glucose,Urine (UA) Negative (Negative); Ketones,Urine 4+ (Negative); Leukocyte Esterase,Urine Trace (Negative); Mucus,Urine Moderate /hpf; Nitrite,Urine Negative (Negative); Protein,Urine 1+ (Negative); Specific Gravity,Urine 1.033 (1.001-1.035); Squamous Epithelial Cell,Urine 5 /hpf (0-4); WBC,Urine 4 /hpf (0-5)
[2020-11-18 15:29] LABS: ALT 11 U/L (4-34); AST 21 U/L (14-36); African American GFR (CKD) >90 (>60 ml/min/1.73 sqM); Albumin 4.8 g/dL (3.5-5.0); Alkaline Phosphatase 58 U/L (38-126); Amylase 52 U/L (30-110); Anion Gap 13 mmol/L; Blood Urea Nitrogen 16 mg/dL (7-17); Calcium 9.9 mg/dL (8.4-10.2); Carbon Dioxide 20 mmol/L (22-30); Chloride 100 mmol/L (98-107); Glucose 89 mg/dL (74-99); Lipase 92 U/L (23-300); Non-African American GFR(CKD) >90 (>60 ml/min/1.73 sqM); Potassium 3.3 mmol/L (3.5-5.1); Sodium 133 mmol/L (137-145); Total Bilirubin 1.1 mg/dL (0.2-1.3)
[2020-11-18] MEDS ORDERED: POTASSIUM CHLORIDE ER 20 MEQ TAB.ER PO STA (16:11)
[2020-11-18 16:16] VITALS: BP 99/57; PULSE 63
== END 2020-11-18 16:19 | disposition home or self-care (01) ==
LOC: EC 12:52
DX: O21.9 Vomiting of pregnancy, unspecified (principal); O99.331 Smoking (tobacco) complicating pregnancy, first trimester; F17.200 Nicotine dependence, unspecified, uncomplicated; Z91.018 Allergy to other foods; Z3A.01 Less than 8 weeks gestation of pregnancy
CPT/HCPCS: 36415; 80053; 82150; 83690; 85025; 81001; 81025; 99283; 96374; 96375; 96361; J1200; J2765

== ENCOUNTER 2020-12-06 20:37 | Emergency (ER) | payer OTHER ==
[2020-12-06] MEDS ORDERED: SODIUM CHLORIDE 0.9% 2,000 ML IV STA (21:06)
[2020-12-06] MEDS ORDERED: METOCLOPRAMIDE 5 MG/ML 2 ML VIAL IVP STA (21:06)
[2020-12-06] MEDS ORDERED: diphenhydrAMINE 50 MG/ML 1 ML VIAL IVP STA (21:07)
[2020-12-06 21:28] LABS: Basophils % (A) 0 %; Eosinophils # (A) 0.1 k/uL (0-0.7); Eosinophils % (A) 1 %; HCT 43.1 % (34.0-46.0); HGB 14.5 gm/dL (11.4-16.0); Lymphocytes # (A) 1.6 k/uL (1.0-4.8); Lymphocytes % (A) 12 %; MCH 30.7 pg (25.0-35.0); MCHC 33.7 g/dL (31.0-37.0); Mean Platelet Volume 7.1; Monocytes # (A) 0.6 k/uL (0-1.0); Monocytes % (A) 5 %; Neutrophils # (A) 11.1 k/uL (1.3-7.7); Neutrophils % (A) 82 %; Platelet Count 294 k/uL (150-450); RBC 4.73 m/uL (3.80-5.40); RDW 12.3 % (11.5-15.5); WBC 13.6 k/uL (3.8-10.6)
[2020-12-06 21:31] LABS: Appearance,Urine Cloudy (Clear); Bilirubin,Urine Negative (Negative); Blood,Urine Negative (Negative); Color,Urine Yellow; Glucose,Urine (UA) Negative (Negative); Ketones,Urine Negative (Negative); Leukocyte Esterase,Urine Small (Negative); Mucus,Urine Rare /hpf; Nitrite,Urine Negative (Negative); PH, Urine 8.5 (5.0-8.0); Protein,Urine Trace (Negative); RBC,Urine 1 /hpf (0-5); Specific Gravity,Urine 1.018 (1.001-1.035); Squamous Epithelial Cell,Urine 6 /hpf (0-4); Urobilinogen,Urine <2.0 mg/dL (<2.0); WBC,Urine 4 /hpf (0-5)
[2020-12-06 21:37] LABS: Chloride 100 mmol/L (98-107)
[2020-12-06 21:40] LABS: ALT 14 U/L (4-34); AST 20 U/L (14-36); African American GFR (CKD) >90 (>60 ml/min/1.73 sqM); Albumin 5.2 g/dL (3.5-5.0); Alkaline Phosphatase 57 U/L (38-126); Amylase 60 U/L (30-110); Anion Gap 14 mmol/L; Blood Urea Nitrogen 4 mg/dL (7-17); Calcium 10.5 mg/dL (8.4-10.2); Carbon Dioxide 21 mmol/L (22-30); Glucose 90 mg/dL (74-99); Lipase 74 U/L (23-300); Non-African American GFR(CKD) >90 (>60 ml/min/1.73 sqM); Potassium 3.7 mmol/L (3.5-5.1); Sodium 135 mmol/L (137-145); Total Bilirubin 0.7 mg/dL (0.2-1.3); Total Protein 8.5 g/dL (6.3-8.2)
[2020-12-06 21:47] VITALS: RESP 18
[2020-12-06] MEDS ORDERED: ONDANSETRON 4 MG/2 ML VIAL IVP STA (22:21)
--- NOTE | 2020-12-06 22:50 | ED ---
General Adult HPI - General Chief complaint: Nausea/Vomiting/Diarrhea Stated complaint: Nausea Time Seen by Provider: 12/06/20 20:45 Source: patient Mode of arrival: ambulatory Limitations: no limitations - History of Present Illness Initial comments: 20-year-old G2 1 P0 female currently 7 weeks presents to the emergency room for a chief complaint of nausea vomiting. Patient reports that ever since she got she has been very nauseous. She is able to keep down a little bit of water but has otherwise been vomiting frequently. She is scheduled to see her FINANCIAL AID OFFICER in the next 2 weeks. Patient has been taking Zofran that is her mothers which has helped somewhat. However today nausea got worse than normal. She states the last time she was in the ER the medications helped significantly with her symptoms that she decided to come back in today. The patient reports she tried to fill the Diclegis however insurance did not cover this.Patient has no other complaints at this time including shortness of breath, chest pain, abdominal pain, headache, or visual changes. - Related Data Home Medications Medication Instructions Recorded Confirmed Ondansetron HCl [Zofran] 4 mg PO DAILY PRN 12/06/20 12/06/20 Previous Rx's Medication Instructions Recorded Doxylamine Succinate [Unisom] 25 mg PO HS #20 tablet 12/06/20 Pyridoxine [Vitamin B-6] 50 mg PO HS #20 tablet 12/06/20 Allergies Allergy/AdvReac Type Severity Reaction Status Date / Time carolyn Allergy Swelling Verified 12/06/20 22:28 Review of Systems ROS Statement: Those systems with pertinent positive or pertinent negative responses have been documented in the HPI. ROS Other: All systems not noted in ROS Statement are negative. Past Medical History Past Medical History: Asthma, Seizure Disorder Additional Past Medical History / Comment(s): neuropathy History of Any Multi-Drug Resistant Organisms: None Reported Past Surgical History: No Surgical Hx Reported Past Psychological History: Anxiety, Depression, Panic Disorder, PTSD Smoking Status: Current every day smoker Past Alcohol Use History: None Reported Past Drug Use History: Marijuana General Exam Limitations: no limitations General appearance: alert, in no apparent distress Head exam: Present: atraumatic, normocephalic, normal inspection Eye exam: Present: normal appearance, PERRL, EOMI. Absent: scleral icterus, conjunctival injection, periorbital swelling ENT exam: Present: normal exam, mucous membranes moist Neck exam: Present: normal inspection, full ROM. Absent: tenderness, meningismus, lymphadenopathy Respiratory exam: Present: normal lung sounds bilaterally. Absent: respiratory distress, wheezes, rales, rhonchi, stridor Cardiovascular Exam: Present: regular rate, normal rhythm, normal heart sounds. Absent: systolic murmur, diastolic murmur, rubs, gallop, clicks GI/Abdominal exam: Present: soft, normal bowel sounds. Absent: distended, tenderness, guarding, rebound, rigid Neurological exam: Present: alert Course Vital Signs 12/06/20 12/06/20 20:43 21:45 Temperature 97.8 F Pulse Rate 104 H 69 Respiratory 16 18 Rate Blood Pressure 110/69 116/65 O2 Sat by Pulse 100 100 Oximetry Medical Decision Making - Medical Decision Making Vitals are stable. Patient initially tachycardic however this did improve th roughout her stay. Physical exam unremarkable. No abdominal tenderness. CBC CMP unremarkable. Urinalysis is negative for bacteria. Patient did have a positive test at her last ER visit. Patient has not had any complaints such as abdominal pain or vaginal bleeding. Patient was given IV Reglan and Benadryl and did have significant improvement in symptoms. She was also given a dose of IV Zofran. I did rewrite the Unisom and B6 separately so her insurance and cover this. If they do not cover it she can get this filled [id number]. She is aware to return for any worsening symptoms. - Lab Data Result diagrams: 12/06/20 21:16 12/06/20 21:16 Lab Results 12/06/20 12/06/20 12/06/20 Range/Units 21:16 21:16 21:17 WBC 13.6 H (3.8-10.6) k/uL RBC 4.73 (3.80-5.40) m/uL Hgb 14.5 (11.4-16.0) gm/dL Hct 43.1 (34.0-46.0) % MCV 91.0 (80.0-100.0) fL MCH 30.7 (25.0-35.0) pg MCHC 33.7 (31.0-37.0) g/dL RDW 12.3 (11.5-15.5) % Plt Count 294 (150-450) k/uL MPV 7.1 Neutrophils % 82 % Lymphocytes % 12 % Monocytes % 5 % Eosinophils % 1 % Basophils % 0 % Neutrophils # 11.1 H (1.3-7.7) k/uL Lymphocytes # 1.6 (1.0-4.8) k/uL Monocytes # 0.6 (0-1.0) k/uL Eosinophils # 0.1 (0-0.7) k/uL Basophils # 0.0 (0-0.2) k/uL Sodium 135 L (137-145) mmol/L Potassium 3.7 (3.5-5.1) mmol/L Chloride 100 (98-107) mmol/L Carbon Dioxide 21 L (22-30) mmol/L Anion Gap 14 mmol/L BUN 4 L (7-17) mg/dL Creatinine 0.57 (0.52-1.04) mg/dL Est GFR (CKD-EPI)AfAm >90 (>60 ml/min/1.73 sqM) Est GFR (CKD-EPI)NonAf >90 (>60 ml/min/1.73 sqM) Glucose 90 (74-99) mg/dL Calcium 10.5 H (8.4-10.2) mg/dL Total Bilirubin 0.7 (0.2-1.3) mg/dL AST 20 (14-36) U/L ALT 14 (4-34) U/L Alkaline Phosphatase 57 (38-126) U/L Total Protein 8.5 H (6.3-8.2) g/dL Albumin 5.2 H (3.5-5.0) g/dL Amylase 60 (30-110) U/L Lipase 74 (23-300) U/L Urine Color Yellow Urine Appearance Cloudy H (Clear) Urine pH 8.5 H (5.0-8.0) Ur Specific [place] 1.018 (1.001-1.035) Urine Protein Trace H (Negative) Urine Glucose (UA) Negative (Negative) Urine Ketones Negative (Negative) Urine Blood Negative (Negative) Urine Nitrite Negative (Negative) Urine Bilirubin Negative (Negative) Urine Urobilinogen <2.0 (<2.0) mg/dL Ur Leukocyte Esterase Small H (Negative) Urine RBC 1 (0-5) /hpf Urine WBC 4 (0-5) /hpf Ur Squamous Epith Cells 6 H (0-4) /hpf Urine Mucus Rare H (None) /hpf Disposition Clinical Impression: Nausea and vomiting during Disposition: HOME SELF-CARE Condition: Good Instructions (If sedation given, give patient instructions): Hyperemesis Gravidarum (ED) Additional Instructions: Please take each medication at bedtime for nausea. If these are still too expensive of prescriptions you can get them [id number]. Continue taking vitamins. Follow-up with OB. If symptoms worsen return to the e mergency room. Prescriptions: Doxylamine Succinate [Unisom] 25 mg PO HS #20 tablet Pyridoxine [Vitamin B-6] 50 mg PO HS #20 tablet Is patient prescribed a controlled substance at d/c from ED?: No Referrals: Deonte Turk DO [Primary Care Provider] - 1-2 days Time of Disposition: 22:46
[2020-12-06 23:20] VITALS: BP 100/57; PULSE 73; TEMP 98.2
== END 2020-12-06 23:00 | disposition home or self-care (01) ==
LOC: EC 20:37
DX: O21.9 Vomiting of pregnancy, unspecified (principal); O99.511 Diseases of the respiratory system complicating pregnancy, first trimester; J45.909 Unspecified asthma, uncomplicated; O99.331 Smoking (tobacco) complicating pregnancy, first trimester; F17.200 Nicotine dependence, unspecified, uncomplicated; O99.341 Other mental disorders complicating pregnancy, first trimester; F32.9 Major depressive disorder, single episode, unspecified; F12.90 Cannabis use, unspecified, uncomplicated; Z3A.01 Less than 8 weeks gestation of pregnancy
CPT/HCPCS: 36415; 80053; 82150; 83690; 85025; 81001; 99284; 96374; 96375; 96361; J1200; J2765; J2405

== ENCOUNTER → 2020-12-22 | Outpatient (CLI) | payer OTHER ==
--- NOTE | 2020-12-22 14:28 | US ---
EXAMINATION TYPE: Transabdominal DATE OF EXAM: 12/22/2020 1:48 PM COMPARISON: NONE CLINICAL HISTORY: Z36 confirm dates. Dates. EXAM PERFORMED: Transabdominal (TA) EXAM MEASUREMENTS: GESTATIONAL AGE / DATING Physician Established: Not yet established Dates by LMP: (10 weeks/3 days) EDC: 07/17/2021 Dates by First Scan: No previous this is first scan Dates by Current Scan for: (11 weeks/4 days) EDC: 07/09/2021 MATERNAL ANATOMY Uterus: 9.8 x 9.9 x 7.8 cm Right Ovary: 3.2 x 2.7 x 1.7 cm Left Ovary: 2.7 x 1.1 x 1.5 cm Post CDS / Adnexa: no free fluid Presence of free fluid: no Presence of corpus luteal cyst: no Presence of subchorionic bleed: no GESTATION / SURVEY CRL: 4.8 cm (11 weeks/4 days) MSD: seen, not measured Yolk Sac (normal less than 6mm): Not visualized Heart Rate: 161 bpm Rhythm: Normal IUP: Viable IUP Nuchal Translucency 10-14wks (normal less than 3mm): 1.3 mm Date of LMP: 10/10/2020G2P0 Beta HcG (if available): Not available at this time Single live IUP measuring 11 weeks 4 days. IMPRESSION: Single intrauterine gestation estimated at 11 weeks 4 days gestation based on the crown-rump length. Cardiac activity measures 161 bpm.
== END ==
LOC: RADUSWWP 13:28
PROVIDERS: ATTEND Obstetrics & Gynecology
DX: Z34.91 Encounter for supervision of normal pregnancy, unspecified, first trimester (principal); Z3A.11 11 weeks gestation of pregnancy
CPT/HCPCS: 76801; 76813

== ENCOUNTER 2021-02-06 16:33 | Emergency (ER) | payer OTHER ==
[2021-02-06 16:44] VITALS: TEMP 98.2
[2021-02-06] MEDS ORDERED: SODIUM CHLORIDE 0.9% 1,000 ML IV STA (17:20)
[2021-02-06] MEDS ORDERED: ACETAMINOPHEN TAB 325 MG TAB PO STA ×2 (17:22→17:48)
--- NOTE | 2021-02-06 17:26 | ED ---
Abdominal Pain HPI - General Source: patient Mode of arrival: ambulatory Limitations: no limitations - History of Present Illness MD Complaint: abdominal pain (Less than 1 hour) -: hour(s) Location: RUQ, RLQ Radiation: LLQ Severity: moderate Severity scale (1-10): 7 Quality: cramping Consistency: intermittent Improves With: rest Worsens With: movement Associated Symptoms: denies other symptoms - Related Data Patient : Yes Number of weeks : 17 <Hieu Rutherford - Last Filed: 02/06/21 20:00> <Deepti Manzano - Last Filed: 02/08/21 12:49> - General Chief Complaint: Abdominal Pain Stated Complaint: 17wks preg, bleeding Time Seen by Provider: 02/06/21 16:47 - History of Present Illness Initial Comments: 20-year-old white female patient presents to the emergency room with her mother, complaining of right upper and right lower sided abdominal cramping but prior to arrival. Patient states it's worse when standing or to palpation. Patient also states when you press on the left side of her abdomen hurts on the right side. Patient denies fevers, nausea vomiting or diarrhea. Patient does state that she is 17 weeks but denies any vaginal bleeding. Pain is relieved at rest. No medical history. Patient does state she smokes 5-10 cigarettes a day and occasional marijuana use. Denies alcohol use. Patient has had an ultrasound in January for this . (Hieu Rutherford) - Related Data Home Medications Medication Instructions Recorded Confirmed Acetaminophen [Tylenol] 325 mg PO Q4H PRN 02/06/21 02/06/21 Mbr-Klrk-Wqsud Acid 1 cap PO DAILY 02/06/21 02/06/21 [-U Capsule (formulary)] Allergies Allergy/AdvReac Type Severity Reaction Status Date / Time carolyn Allergy Swelling Verified 02/06/21 20:00 Review of Systems ROS Other: All systems not noted in ROS Statement are negative. <Hieu Rutherford - Last Filed: 02/06/21 20:00> ROS Other: All systems not noted in ROS Statement are negative. <Deepti Manzano - Last Filed: 02/08/21 12:49> ROS Statement: Those systems with pertinent positive or pertinent negative responses have been documented in the HPI. Past Medical History Past Medical History: Asthma, Seizure Disorder Additional Past Medical History / Comment(s): neuropathy History of Any Multi-Drug Resistant Organisms: None Reported Past Surgical History: No Surgical Hx Reported Past Psychological History: Anxiety, Depression, Panic Disorder, PTSD Smoking Status: Current every day smoker Past Alcohol Use History: None Reported Past Drug Use History: Marijuana <Hieu Rutherford Last Filed: 02/06/21 20:00> General Exam Limitations: no limitations General appearance: alert, in no apparent distress Head exam: Present: atraumatic, normocephalic, normal inspection Eye exam: Present: normal appearance, PERRL, EOMI. Absent: scleral icterus, conjunctival injection, periorbital swelling ENT exam: Present: normal exam, mucous membranes moist Neck exam: Present: normal inspection, full ROM. Absent: tenderness, meningismus, lymphadenopathy Respiratory exam: Present: normal lung sounds bilaterally. Absent: respiratory distress, wheezes, rales, rhonchi, stridor, chest wall tenderness, accessory muscle use, decreased breath sounds Cardiovascular Exam: Present: regular rate, normal rhythm, normal heart sounds. Absent: systolic murmur, diastolic murmur, rubs, gallop, clicks GI/Abdominal exam: Present: soft, tenderness, rebound, normal bowel sounds. Absent: rigid, mass Extremities exam: Present: normal inspection, full ROM, normal capillary refill. Absent: tenderness, pedal edema, joint swelling, calf tenderness Back exam: Present: normal inspection, full ROM. Absent: tenderness, CVA tenderness (R), CVA tenderness (L) Neurological exam: Present: alert, oriented X3, CN II-XII intact Psychiatric exam: Present: normal affect Skin exam: Present: warm, dry, intact, normal color. Absent: rash, cyanosis, diaphoretic, erythema, petechiae, pallor, mottled <Hieu Rutherford - Last Filed: 02/06/21 20:00> Course Vital Signs 02/06/21 02/06/21 16:41 20:14 Temperature 98.2 F Pulse Rate 67 74 Respiratory 18 16 Rate Blood Pressure 105/59 105/63 O2 Sat by Pulse 100 100 Oximetry Medical Decision Making - Lab Data Result diagrams: 02/06/21 17:46 02/06/21 17:46 <Hieu Rutherford Last Filed: 02/06/21 20:00> - Lab Data Result diagrams: 02/06/21 17:46 02/06/21 17:46 <Deepti Manzano - Last Filed: 02/08/21 12:49> - Medical Decision Making Ultrasound abdomen complete shows no abnormalities, no gallstones, appendix not visualized. There is no elevation in white count, there is no fever. Abdomen is soft nontender. Patient does not have any vaginal bleeding. Patient has no cough, nausea vomiting or diarrhea. Patient states that she has noticed some relief with Tylenol. heart tones obtained in the 140s. Discussed discharge with patient and her mother both agreeable to going home and following up with her primary care doctor returning if worsening symptoms. Case discussed with Dr. Manzano will discharge patient home with follow-up with her family care doctor and return to the emergency room with increasing pain, or fevers. (Hieu Rutherford) I was available for consultation in the emergency department. The history and physical exam were done by the midlevel provider. I was consulted for this patients care. I reviewed the case with the midlevel provider and based on their presentation of the patient, I agree with the assessment, medical decision making and plan of care as documented. Chart was dictated using [employer] dictation software. Attempts were made to correct any dictation errors however some typographical errors may persist. Patient was seen during a national state of emergency due to the Covid-19 pandemic. (Deepti Manzano) - Lab Data Lab Results 02/06/21 02/06/21 02/06/21 Range/Units 16:47 16:47 17:46 WBC 10.6 (3.8-10.6) k/uL RBC 3.84 (3.80-5.40) m/uL Hgb 12.0 (11.4-16.0) gm/dL Hct 35.7 (34.0-46.0) % MCV 92.8 (80.0-100.0) fL MCH 31.1 (25.0-35.0) pg MCHC 33.5 (31.0-37.0) g/dL RDW 13.1 (11.5-15.5) % Plt Count 247 (150-450) k/uL MPV 7.3 Neutrophils % 79 % Lymphocytes % 13 % Monocytes % 6 % Eosinophils % 1 % Basophils % 0 % Neutrophils # 8.4 H (1.3-7.7) k/uL Lymphocytes # 1.4 (1.0-4.8) k/uL Monocytes # 0.6 (0-1.0) k/uL Eosinophils # 0.1 (0-0.7) k/uL Basophils # 0.0 (0-0.2) k/uL Sodium (137-145) mmol/L Potassium (3.5-5.1) mmol/L Chloride (98-107) mmol/L Carbon Dioxide (22-30) mmol/L Anion Gap mmol/L BUN (7-17) mg/dL Creatinine (0.52-1.04) mg/dL Est GFR (CKD-EPI)AfAm (>60 ml/min/1.73 sqM) Est GFR (CKD-EPI)NonAf (>60 ml/min/1.73 sqM) Glucose (74-99) mg/dL Plasma Lactic Acid Eddie (0.7-2.0) mmol/L Calcium (8.4-10.2) mg/dL Total Bilirubin (0.2-1.3) mg/dL AST (14-36) U/L ALT (4-34) U/L Alkaline Phosphatase (38-126) U/L Total Protein (6.3-8.2) g/dL Albumin (3.5-5.0) g/dL Amylase (30-110) U/L Lipase (23-300) U/L Urine Color Yellow Urine Appearance Cloudy H (Clear) Urine pH 8.5 H (5.0-8.0) Ur Specific [place] 1.018 (1.001-1.035) Urine Protein Trace H (Negative) Urine Glucose (UA) Negative (Negative) Urine Ketones Negative (Negative) Urine Blood Negative (Negative) Urine Nitrite Negative (Negative) Urine Bilirubin Negative (Negative) Urine Urobilinogen <2.0 (<2.0) mg/dL Ur Leukocyte Esterase Small H (Negative) Urine RBC 1 (0-5) /hpf Urine WBC 2 (0-5) /hpf Ur Squamous Epith Cells 7 H (0-4) /hpf Amorphous Sediment Rare H (None) /hpf Urine Bacteria Rare H (None) /hpf Urine Mucus Rare H (None) /hpf Urine HCG, Qual Detected (Not Detectd) 02/06/21 02/06/21 Range/Units 17:46 17:46 WBC (3.8-10.6) k/uL RBC (3.80-5.40) m/uL Hgb (11.4-16.0) gm/dL Hct (34.0-46.0) % MCV (80.0-100.0) fL MCH (25.0-35.0) pg MCHC (31.0-37.0) g/dL RDW (11.5-15.5) % Plt Count (150-450) k/uL MPV Neutrophils % % Lymphocytes % % Monocytes % % Eosinophils % % Basophils % % Neutrophils # (1.3-7.7) k/uL Lymphocytes # (1.0-4.8) k/uL Monocytes # (0-1.0) k/uL Eosinophils # (0-0.7) k/uL Basophils # (0-0.2) k/uL Sodium 134 L (137-145) mmol/L Potassium 3.6 (3.5-5.1) mmol/L Chloride 106 (98-107) mmol/L Carbon Dioxide 25 (22-30) mmol/L Anion Gap 3 mmol/L BUN 5 L (7-17) mg/dL Creatinine 0.50 L (0.52-1.04) mg/dL Est GFR (CKD-EPI)AfAm >90 (>60 ml/min/1.73 sqM) Est GFR (CKD-EPI)NonAf >90 (>60 ml/min/1.73 sqM) Glucose 74 (74-99) mg/dL Plasma Lactic Acid Eddie 0.9 (0.7-2.0) mmol/L Calcium 8.9 (8.4-10.2) mg/dL Total Bilirubin 0.3 (0.2-1.3) mg/dL AST 17 (14-36) U/L ALT 7 (4-34) U/L Alkaline Phosphatase 52 (38-126) U/L Total Protein 6.2 L (6.3-8.2) g/dL Albumin 3.4 L (3.5-5.0) g/dL Amylase 52 (30-110) U/L Lipase 60 (23-300) U/L Urine Color Urine Appearance (Clear) Urine pH (5.0-8.0) Ur Specific [place] (1.001-1.035) Urine Protein (Negative) Urine Glucose (UA) (Negative) Urine Ketones (Negative) Urine Blood (Negative) Urine Nitrite (Negative) Urine Bilirubin (Negative) Urine Urobilinogen (<2.0) mg/dL Ur Leukocyte Esterase (Negative) Urine RBC (0-5) /hpf Urine WBC (0-5) /hpf Ur Squamous Epith Cells (0-4) /hpf Amorphous Sediment (None) /hpf Urine Bacteria (None) /hpf Urine Mucus (None) /hpf Urine HCG, Qual (Not Detectd) Disposition Is patient prescribed a controlled substance at d/c from ED?: No Time of Disposition: 20:00 <Hieu Rutherford - Last Filed: 02/06/21 20:00> <Deepti Manzano - Last Filed: 02/08/21 12:49> Clinical Impression: Abdominal pain Disposition: HOME SELF-CARE Condition: Good Instructions (If sedation given, give patient instructions): Abdominal Pain in (ED) Additional Instructions: Follow-up with the primary care doctor and/or [facility] in one week, Tylenol as needed for pain. Return to emergency room if worsening abdominal pain or fevers. Referrals: Deonte Turk DO [Primary Care Provider] - 1-2 days
[2021-02-06 17:30] LABS: Amorphous Sediment,Urine Rare /hpf; Appearance,Urine Cloudy (Clear); Bacteria,Urine Rare /hpf; Bilirubin,Urine Negative (Negative); Blood,Urine Negative (Negative); Color,Urine Yellow; Glucose,Urine (UA) Negative (Negative); Ketones,Urine Negative (Negative); Leukocyte Esterase,Urine Small (Negative); Mucus,Urine Rare /hpf; Nitrite,Urine Negative (Negative); PH, Urine 8.5 (5.0-8.0); Protein,Urine Trace (Negative); RBC,Urine 1 /hpf (0-5); Specific Gravity,Urine 1.018 (1.001-1.035); Squamous Epithelial Cell,Urine 7 /hpf (0-4); Urobilinogen,Urine <2.0 mg/dL (<2.0); WBC,Urine 2 /hpf (0-5)
[2021-02-06 17:56] LABS: Basophils % (A) 0 %; Eosinophils # (A) 0.1 k/uL (0-0.7); Eosinophils % (A) 1 %; HCT 35.7 % (34.0-46.0); Lymphocytes # (A) 1.4 k/uL (1.0-4.8); Lymphocytes % (A) 13 %; MCH 31.1 pg (25.0-35.0); MCHC 33.5 g/dL (31.0-37.0); MCV 92.8 fL (80.0-100.0); Mean Platelet Volume 7.3; Monocytes # (A) 0.6 k/uL (0-1.0); Monocytes % (A) 6 %; Neutrophils # (A) 8.4 k/uL (1.3-7.7); Neutrophils % (A) 79 %; Platelet Count 247 k/uL (150-450); RBC 3.84 m/uL (3.80-5.40); RDW 13.1 % (11.5-15.5); WBC 10.6 k/uL (3.8-10.6)
[2021-02-06 18:06] LABS: ALT 7 U/L (4-34); AST 17 U/L (14-36); African American GFR (CKD) >90 (>60 ml/min/1.73 sqM); Albumin 3.4 g/dL (3.5-5.0); Alkaline Phosphatase 52 U/L (38-126); Amylase 52 U/L (30-110); Anion Gap 3 mmol/L; Blood Urea Nitrogen 5 mg/dL (7-17); Calcium 8.9 mg/dL (8.4-10.2); Carbon Dioxide 25 mmol/L (22-30); Chloride 106 mmol/L (98-107); Glucose 74 mg/dL (74-99); Lipase 60 U/L (23-300); Non-African American GFR(CKD) >90 (>60 ml/min/1.73 sqM); Sodium 134 mmol/L (137-145); Total Bilirubin 0.3 mg/dL (0.2-1.3); Total Protein 6.2 g/dL (6.3-8.2)
[2021-02-06 18:17] LABS: Potassium 3.6 mmol/L (3.5-5.1)
--- NOTE | 2021-02-06 18:45 | US ---
EXAMINATION TYPE: US abdomen complete DATE OF EXAM: 02/06/2021 COMPARISON: CT 2014 CLINICAL HISTORY: abdominal pain. Abdomen pain x 1 day, patient is 17 weeks EXAM MEASUREMENTS: Liver Length: 14.5 cm Gallbladder Wall: 0.1 cm CBD: 0.1 cm Spleen: 9.8 cm Right Kidney: 10.9 x 4.5 x 5.0 cm Left Kidney: 10.8 x 4.8 x 4.5 cm Pancreas: wnl Liver: wnl Gallbladder: wnl Evidence for sonographic Evans's sign: no CBD: wnl Spleen: visualized portions wnl, limited by overlying bowel gas Right Kidney: fullness of renal pelvis Left Kidney: fullness of renal pelvis Upper IVC: wnl Abd Aorta: wnl There is no free fluid. IMPRESSION: Negative complete abdominal sonogram. No gallstones or dilated ducts. No renal mass or ob struction.
[2021-02-06 20:15] VITALS: BP 105/63; PULSE 74; RESP 16
== END 2021-02-06 20:15 | disposition home or self-care (01) ==
LOC: EC 16:33
DX: O26.892 Other specified pregnancy related conditions, second trimester (principal); O99.332 Smoking (tobacco) complicating pregnancy, second trimester; O99.512 Diseases of the respiratory system complicating pregnancy, second trimester; F17.210 Nicotine dependence, cigarettes, uncomplicated; J45.909 Unspecified asthma, uncomplicated; F12.90 Cannabis use, unspecified, uncomplicated; Z3A.17 17 weeks gestation of pregnancy
CPT/HCPCS: 36415; 76700; 80053; 81001; 81025; 82150; 83605; 83690; 85025; 96360; 96361; 99284

== ENCOUNTER 2021-05-25 20:18 | Outpatient (CLI) | payer OTHER ==
[2021-05-25 21:07] VITALS: BP 113/64; PULSE 81; RESP 16; TEMP 97.5
--- NOTE | 2021-06-03 12:20 | P.MSEPDOC ---
Presenting Problems - Arrival Data Date of Arrival on Unit: 05/25/21 Time of Arrival on Unit: 20:18 Mode of Transport: Ambulatory - Complaint OB-Reason for Admission/Chief Complaint: Pain Comment: Patient presents to triage with complaints of pain that started around 1800 while she was at work "near my right ovary and shoots down my right leg." states the pain is only on her right side, abdomen soft and non-tender. Reports active movement, denies leaking of fluid or vaginal bleeding. Patient has limited care, but seems confused that she is supposed to schedule regular appointments, states "Dr. Longoria told me I didn't need to come back unless I had problems." Medical History - Information : 2 Para: 0 Term: 0 : 0 Abortions: Spontaneous or Elective: 0 Number of Living Children: 0 - Gestational Age Gestational Age by BIJU (wks/days): 32 Weeks and 3 Days - History Complications: Smoker Review of Systems - Review of Systems Constitutional: No problems Breast: No problems ENT: No problems Cardiovascular: No problems Respiratory: No problems Gastrointestinal: No problems Genitourinary: No problems Musculoskeletal: No problems Neurological: No problems Skin: No problems Vital Signs - Temperature Temperature: 97.5 F Temperature Source: Temporal Artery Scan - Pulse Pulse Oximetery Pulse Rate: 81 Pulse Assessment Method: Pulse Oximetry - Respirations Respiratory Rate: 16 Oxygen Delivery Method: Room Air - Blood Pressure Sitting Blood Pressure: 113/64 Blood Pressure Mean: 80 Blood Pressure Source: Automatic Cuff Medical Screen Scoring - Cervical Exam Membranes: Intact - Uterine Contractions Intensity: Absent Resting: Soft to palpation - Assessment - Baby A Baseline FHR: 130 Heart Rate - NICHD Category: Category I (Normal) NST: Reactive Physician Notification - Physician Notified Physician Notified Date: 05/25/21 Physician Notified Time: 20:47 Physician: Swati Christie New Order Received: Yes - Notification Comment Comment: Orders given to discharge patient home with instructions, encourage pain relieving measures. Physician states to encourage patient to call the office in the morning to make an appointment to continue the course of her visits. Maternal Triage Index - Urgent/Priority 2 Urgent Priority 2: Yes Provider Notified: Swati Christie Provider Notified Time: 20:47 Criteria Met for Priority 2: Patient reports pain unrelated to contractions a 7/10 on her right side shooting down her right leg, states the pain "fluctuates" abdomen soft and non-tender. patient points to her right lower pelvic/groin area and down her right leg when asked to localize the pain. Disposition - Disposition OB Disposition: Discharge to home, Written follow up instructions reviewed Discharge Date: 05/25/21 Discharge Time: 20:58 I agree with the RN Medical Screening Exam: Yes Case reviewed; plan agreed upon as documented in EMR&OBIX.: Yes Diagnosis: RELATED CONDITIONS, UNSPECIFIED, THIRD TRIMESTER
== END 2021-05-25 20:58 | disposition home or self-care (01) ==
LOC: FBPOP 20:18
PROVIDERS: ATTEND Obstetrics & Gynecology
DX: O26.893 Other specified pregnancy related conditions, third trimester (principal); O99.333 Smoking (tobacco) complicating pregnancy, third trimester; F17.200 Nicotine dependence, unspecified, uncomplicated; R10.30 Lower abdominal pain, unspecified; Z3A.32 32 weeks gestation of pregnancy
CPT/HCPCS: 59025; G0463; 99213

== ENCOUNTER 2021-06-24 17:45 | Outpatient (CLI) | payer OTHER ==
[2021-06-24 19:15] VITALS: BP 115/66; PULSE 76; RESP 16; TEMP 97.4
--- NOTE | 2021-06-26 17:32 | P.MSEPDOC ---
Presenting Problems - Arrival Data Date of Arrival on Unit: 06/24/21 Time of Arrival on Unit: 17:56 Mode of Transport: Ambulatory - Complaint OB-Reason for Admission/Chief Complaint: Other Comment: cramping and spotting after a dr's appt Medical History - Information : 2 Para: 0 Term: 0 : 0 Abortions: Spontaneous or Elective: 1 Number of Living Children: 0 - Gestational Age Gestational Age by BIJU (wks/days): 37 Weeks and 3 Days Review of Systems - Review of Systems Constitutional: No problems Breast: No problems ENT: No problems Cardiovascular: No problems Respiratory: No problems Gastrointestinal: No problems Genitourinary: No problems Musculoskeletal: No problems Neurological: No problems Skin: No problems Vital Signs - Temperature Temperature: 97.4 F Temperature Source: Temporal Artery Scan - Pulse Radial Pulse Rate: 76 Pulse Assessment Method: Automatic Cuff - Respirations Respiratory Rate: 16 Oxygen Delivery Method: Room Air O2 Sat by Pulse Oximetry: 97 - Blood Pressure Right Arm Blood Pressure: 115/66 Blood Pressure Mean: 82 Blood Pressure Source: Automatic Cuff Medical Screen Scoring - Uterine Contractions Intensity: Mild - Assessment - Baby A Baseline FHR: 135 Heart Rate - NICHD Category: Category I (Normal) NST: Reactive Physician Notification - Physician Notified Physician Notified Date: 06/24/21 Physician Notified Time: 19:00 Physician: Mia Torres Order Received: Yes (february discharge home with instructions) Maternal Triage Index - Non-Urgent/Priority 4 Non-Urgent Priority 4: Yes Criteria Met for Priority 4: pt seen by dr thornton in office today. vaginal exam done. cramping and spotting since seen. Disposition - Disposition OB Disposition: Discharge to home, Written follow up instructions reviewed Discharge Date: 06/24/21 Discharge Time: 19:00 I agree with the RN Medical Screening Exam: Yes Case reviewed; plan agreed upon as documented in EMR&OBIX.: Yes Diagnosis: ANTEPARTUM HEMORRHAGE, UNSPECIFIED, THIRD TRIMESTER
== END 2021-06-24 19:00 | disposition home or self-care (01) ==
LOC: FBPOP 17:45
PROVIDERS: ATTEND Obstetrics & Gynecology
DX: O46.93 Antepartum hemorrhage, unspecified, third trimester (principal); Z3A.37 37 weeks gestation of pregnancy; Z91.018 Allergy to other foods
CPT/HCPCS: 59025; G0463; 99213

== ENCOUNTER 2021-06-29 12:43 | Inpatient (IN) | payer OTHER ==
[2021-06-29] MEDS ORDERED: OXYTOCIN 10 UNIT/ML 1 ML VIAL IM PRN (13:23)
[2021-06-29] MEDS ORDERED: AMPICILLIN 2,000 MG in SODIUM CHLORIDE 0.9% 100 ML IVPB STA (13:23)
[2021-06-29] MEDS ORDERED: LIDOCAINE 0.5% (PF) 5 MG/ML (50 ML SDV) SQ PRN (13:23)
[2021-06-29] MEDS ORDERED: TERBUTALINE 1 MG/ML VIAL SQ PRN (13:23)
[2021-06-29] MEDS ORDERED: CARBOPROST TROMETHAMINE 250 MCG/ML 1 ML AMP IM PRN (13:23)
[2021-06-29] MEDS ORDERED: METHYLERGONOVINE 0.2 MG/ML 1 ML AMP IM PRN (13:23)
[2021-06-29] MEDS ORDERED: OXYTOCIN 30 UNITS/500 ML NS 30 UNIT in SALINE 1 500ML.BAG IV SCH ×2 (13:30→19:15)
[2021-06-29 14:12] LABS: Basophils % (A) 0 %; Eosinophils # (A) 0.2 k/uL (0-0.7); Eosinophils % (A) 2 %; HGB 13.1 gm/dL (11.4-16.0); Lymphocytes # (A) 1.5 k/uL (1.0-4.8); Lymphocytes % (A) 12 %; MCH 31.4 pg (25.0-35.0); MCHC 33.5 g/dL (31.0-37.0); MCV 93.8 fL (80.0-100.0); Mean Platelet Volume 7.8; Monocytes # (A) 0.7 k/uL (0-1.0); Monocytes % (A) 5 %; Neutrophils # (A) 9.6 k/uL (1.3-7.7); Neutrophils % (A) 79 %; Platelet Count 244 k/uL (150-450); RBC 4.16 m/uL (3.80-5.40); RDW 12.7 % (11.5-15.5); WBC 12.2 k/uL (3.8-10.6)
[2021-06-29] MEDS: LACTATED RINGERS 1,000 ML IV SCH ×2 (14:14→16:12)
[2021-06-29] MEDS ORDERED: BUTORPHANOL 1 MG/ML 1 ML VIAL IV PRN (14:58)
[2021-06-29 16:00] LABS: Amphetamine Screen,Urine Not Detected (NotDetected); Barbiturate Screen,Urine Not Detected (NotDetected); Benzodiazepines Screen,Urine Not Detected (NotDetected); Cocaine Screen,Urine Not Detected (NotDetected); Methadone Screen, Urine Not Detected (NotDetected); Opiate Screen,Urine Not Detected (NotDetected); Oxycodone Screen, Urine Not Detected (NotDetected); Phencyclidine Screen,Urine Not Detected (NotDetected); Tricyclic Antidepressant,Urine Not Detected (NotDetected); Urn Cannabinoid Scrn Not Detected (NotDetected)
--- NOTE | 2021-06-29 16:46 | P.HPOB ---
History of Present Illness H&P Date: 06/29/21 Chief Complaint: Intrauterine term: Spontaneous rupture membranes Raquel is a 20-year-old at 38 weeks gestation arise following spontaneous rupture membranes. She relates that her water broke approximately 8:30 this morning she came in approximately 1 PM. She was naomi at that time. Her course has been, complicated by history of seizure disorder and limited care. She did not have any visits between 14 and 33 weeks of the . We did do a nonstress test at approximately 33 weeks as she had not been compliant but the baby has been moving well and she is been doing well and making her follow-up visits since that time. She did have chlamydia early in the which was treated early in the and then she exited end up having a treatment for a tooth infection that would also have treated. Partner reports that he took antibiotics as well. Pertinent labs include A+ blood type, Rh and it was negative, rubella is immune, hepatitis B surface antigen/RPR/HIV were negative but group B strep is positive and she is received antibiotics in labor. She plans to use epidural for analgesia. Chlamydia retest was negative in May. It is noted her medical history assume for asthma and neuropathy as well as a seizure disorder. She uses marijuana but that she will quit approximately 1 month ago. On physical exam vital signs are stable and afebrile. Heart regular, lungs clear, extremities without pain. Abdomen soft gravid uterus is noted. Tender 1 tracing is noted she is dilated 2 cm 80% effaced -3 station. We will anticipate a spontaneous vaginal delivery. Past Medical History Past Medical History: Asthma, Seizure Disorder Additional Past Medical History / Comment(s): neuropathy, pt states her last seizure was in 2012 and that was the only one she had. History of Any Multi-Drug Resistant Organisms: None Reported Past Surgical History: No Surgical Hx Reported Past Anesthesia/Blood Transfusion Reactions: No Reported Reaction Past Psychological History: Anxiety, Depression, Panic Disorder, PTSD Smoking Status: Former smoker Past Alcohol Use History: None Reported Additional Past Alcohol Use History / Comment(s): pt states she quit 2 weeks ago Past Drug Use History: Marijuana Additional Drug Use History / Comment(s): pt states she quit marijuana 1 month ago. - Past Family History Mother Additional Family Medical History / Comment(s): palpitations Medications and Allergies Home Medications Medication Instructions Recorded Confirmed Type Eec-Smve-Ppwtx Acid 1 cap PO DAILY 02/06/21 06/29/21 History [-U Capsule (formulary)] Allergies Allergy/AdvReac Type Severity Reaction Status Date / Time carolyn Allergy Swelling Verified 06/29/21 13:14 Exam Osteopathic Statement: *. No significant issues noted on an osteopathic structural exam other than those noted in the History and Physical/Consult. Vital Signs Temp Pulse Resp BP 06/29/21 13:27 97.9 F 66 16 118/74 Intake and Output 06/29/21 06/29/21 06/29/21 06:59 14:59 22:59 Other: Weight 74.389 kg - OBG Physical Exam Breast: both: normal (no masses) Abdomen: bowel sounds normal, no diffuse tenderness, no bruit present, no guarding noted, no hepatomegaly, no splenomegaly, no mass Vulva: both: normal Vagina: normal moisture, no discharge Cervix: no lesion, no discharge Uterus: normal size, normal contour Adnexa: both: normal Anus/Rectum: normal perianal skin, no rectal mass, no hemorrhoids, heme negative Results Result Diagrams: 06/29/21 13:55 Abnormal Lab Results - Last 24 Hours (Table) 06/29/21 Range/Units 13:55 WBC 12.2 H (3.8-10.6) k/uL Neutrophils # 9.6 H (1.3-7.7) k/uL
[2021-06-29] MEDS ORDERED: AMPICILLIN 1,000 MG in SODIUM CHLORIDE 0.9% 50 ML IVPB SCH (17:30)
[2021-06-29] MEDS ORDERED: ROPIVACAINE 100 MG, fentaNYL (PF). 200 MCG in SODIUM CHLORIDE 0.9% 76 ML EPIDURAL ONE (17:54)
[2021-06-29] MEDS ORDERED: diphenhydrAMINE 25 MG CAP PO PRN (19:12)
[2021-06-29] MEDS ORDERED: diphenhydrAMINE 50 MG/ML 1 ML VIAL IVP PRN ×2 (19:12)
[2021-06-29] MEDS ORDERED: HYDROCORTISONE 2.5% RECTAL CREAM 30 GM TUBE RECTAL PRN (19:12)
[2021-06-29] MEDS ORDERED: BENZOCAINE/MENTHOL SPRAY 1 GM/SPRAY AEROSOL TOPICAL PRN (19:12)
[2021-06-29] MEDS ORDERED: LANOLIN CREAM 5 GM TUBE TOPICAL PRN (19:12)
[2021-06-29] MEDS ORDERED: SIMETHICONE 80 MG CHEWABLE PO PRN (19:12)
[2021-06-29] MEDS ORDERED: ACETAMINOPHEN TAB 325 MG TAB PO PRN (19:12)
[2021-06-29] MEDS ORDERED: diphenhydrAMINE 50 MG CAP PO PRN (19:12)
[2021-06-29] MEDS ORDERED: ZOLPIDEM 5 MG TAB PO PRN (19:12)
--- NOTE | 2021-06-29 19:16 | P.PROBDLV ---
Vaginal Delivery Note - . Vaginal Delivery Note: Raquel is a 20-year-old at 38 weeks gestation presents following spontaneous rupture membranes. She relates that her water broke approximately 8:30 this morning she came in approximately 1 PM. Her cervix was 2-3 cm dilated, 80% effaced, -2 station. She is naomi irregularly. heart tones 1:30 with moderate variability and reactive. Pitocin augmentation was started. Ampicillin was also given for GBS prophylaxis When she was uncomfortable she did get an epidural. Her cervix was completely dilated at 1817. She pushed, delivered a viable female over intact perineum under epidural anesthesia at 1858. Head delivered OA, anterior shoulder delivered gentle downward guidance by posterior shoulder and rest of body. Nose and mouth bulb suctioned, cord clamped and cut, infant placed on mother's abdomen. Apgars 9, 9, weight 6 lbs. 6 oz. Placenta delivered spontaneously, intact with three- vessel cord at 1900. Vagina, cervix, perineum inspected. First-degree midline laceration and a right labial laceration were repaired with 3-0 Vicryl. Estimated blood loss 159 mL. Mother and baby in stable condition.
[2021-06-30] MEDS: IBUPROFEN 600 MG TAB PO PRN ×3 (01:02→13:58)
[2021-06-30] MEDS: SENNOSIDES-DOCUSATE SODIUM 1 EACH TAB PO SCH ×2 (07:44→07:46)
--- NOTE | 2021-06-30 08:32 | P.DS ---
Providers Date of admission: 06/29/21 13:19 Expected date of discharge: 06/30/21 Attending physician: Keegan Longoria Primary care physician: Stated None Hospital Course: Coreen doing very well day 1. She is ambulating, voiding and tolerating her diet. She voices no complaints. Vital signs are stable and afebrile. Heart regular, lungs clear, extremities without pain. Abdomen soft and uterus is firm. Lochia is reported light. Assessment day 1. Plan discharged home follow up with me in 6 weeks. Prescription for breast pump and Motrin are provided. All the questions are answered for her and discharge instructions are reviewed. She is stable for discharge this time. Patient Condition at Discharge: Good Plan - Discharge Summary New Discharge Prescriptions: New Ibuprofen [Motrin] 600 mg PO Q6HR PRN #30 tab PRN Reason: Pain No Action Gjn-Efzc-Lrdjs Acid [-U Capsule (formulary)] 1 cap PO DAILY Discharge Medication List Hep-Xcis-Nzhle Acid [-U Capsule (formulary)] 1 cap PO DAILY 02/06/21 [History] Ibuprofen [Motrin] 600 mg PO Q6HR PRN #30 tab 06/30/21 [Rx] Follow up Appointment(s)/Referral(s): Keegan Longoria DO [Doctor of Osteopathic Medicine] - 6 Weeks Activity/Diet/Wound Care/Special Instructions: No heavy Lifting, limit stairs and driving, and pelvic rest. If any high temperatures, heavy bleeding, or severe pain call my office Discharge Disposition: HOME SELF-CARE
[2021-06-30 09:29] LABS: Basophils % (A) 0 %; Eosinophils # (A) 0.1 k/uL (0-0.7); Eosinophils % (A) 1 %; HCT 39.3 % (34.0-46.0); HGB 12.7 gm/dL (11.4-16.0); Lymphocytes # (A) 2.1 k/uL (1.0-4.8); Lymphocytes % (A) 13 %; MCH 30.7 pg (25.0-35.0); MCHC 32.2 g/dL (31.0-37.0); MCV 95.4 fL (80.0-100.0); Mean Platelet Volume 7.8; Monocytes # (A) 0.8 k/uL (0-1.0); Monocytes % (A) 5 %; Neutrophils # (A) 12.5 k/uL (1.3-7.7); Neutrophils % (A) 80 %; Platelet Count 231 k/uL (150-450); RBC 4.12 m/uL (3.80-5.40); RDW 12.7 % (11.5-15.5); WBC 15.6 k/uL (3.8-10.6)
[2021-06-30 16:59] VITALS: BP 100/63; PULSE 55; RESP 17; TEMP 98.5
== END 2021-06-30 20:13 | disposition home or self-care (01) | DRG 807 ==
LOC: FBPOP 12:43 → 4FBP 13:19
PROVIDERS: ADMIT Obstetrics & Gynecology; ATTEND Obstetrics & Gynecology
PROC: 10E0XZZ Delivery of Products of Conception, External Approach (ICD-10-PCS; principal; 2021-06-29)
PROC: 0HQ9XZZ Repair Perineum Skin, External Approach (ICD-10-PCS; 2021-06-29)
DX: O99.354 Diseases of the nervous system complicating childbirth (principal); Z37.0 Single live birth; O99.344 Other mental disorders complicating childbirth; O99.52 Diseases of the respiratory system complicating childbirth; J45.909 Unspecified asthma, uncomplicated; O70.0 First degree perineal laceration during delivery; Z3A.38 38 weeks gestation of pregnancy; Z87.891 Personal history of nicotine dependence; F43.10 Post-traumatic stress disorder, unspecified; F41.0 Panic disorder [episodic paroxysmal anxiety]; F32.9 Major depressive disorder, single episode, unspecified; G40.909 Epilepsy, unspecified, not intractable, without status epilepticus; R56.9 Unspecified convulsions
CPT/HCPCS: 59025; 80306; 84112; 85025; 86850; 86900; 86901; 99213

== ENCOUNTER 2021-09-07 20:24 | Emergency (ER) | payer OTHER ==
--- NOTE | 2021-09-07 20:56 | ED ---
General Adult HPI - General Chief complaint: Recheck/Abnormal Lab/Rx Stated complaint: Upper Respiratory Infection Time Seen by Provider: 09/07/21 20:31 Source: patient, family, RN notes reviewed Mode of arrival: ambulatory Limitations: no limitations - History of Present Illness Initial comments: 20-year-old female presents to the emergency department requesting to be tested for Covid. Patient states her mother developed symptoms last night and tested positive today. Patient denies any symptoms at this time. Denies fever, chills, headache, chest pain, abdominal pain, nausea, vomiting, diarrhea, or dysuria. - Related Data Home Medications Medication Instructions Recorded Confirmed Ysb-Whlc-Lgoly Acid 1 cap PO DAILY 02/06/21 06/29/21 [-U Capsule (formulary)] Previous Rx's Medication Instructions Recorded Ibuprofen [Motrin] 600 mg PO Q6HR PRN #30 tab 06/30/21 Allergies Allergy/AdvReac Type Severity Reaction Status Date / Time carolyn Allergy Swelling Verified 09/07/21 20:47 Review of Systems ROS Statement: Those systems with pertinent positive or pertinent negative responses have been documented in the HPI. ROS Other: All systems not noted in ROS Statement are negative. Past Medical History Past Medical History: Asthma, Seizure Disorder Additional Past Medical History / Comment(s): neuropathy, pt states her last seizure was in 2012 and that was the only one she had. History of Any Multi-Drug Resistant Organisms: None Reported Past Surgical History: No Surgical Hx Reported Past Anesthesia/Blood Transfusion Reactions: No Reported Reaction Past Psychological History: Anxiety, Depression, Panic Disorder, PTSD Smoking Status: Former smoker Past Alcohol Use History: None Reported Past Drug Use History: Marijuana - Past Family History Mother Additional Family Medical History / Comment(s): palpitations General Exam Limitations: no limitations (Well-developed, well-nourished female in no acute distress. Temperature 97.8, pulse 77, respirations 20, blood pressure 122/72, pulse ox 97% on room air.) General appearance: alert, in no apparent distress ENT exam: Present: normal exam, normal oropharynx, mucous membranes moist Respiratory exam: Present: normal lung sounds bilaterally. Absent: respiratory distress, wheezes, rales, rhonchi, stridor Cardiovascular Exam: Present: regular rate, normal rhythm, normal heart sounds. Absent: systolic murmur, diastolic murmur, rubs, gallop, clicks GI/Abdominal exam: Present: soft, normal bowel sounds. Absent: distended, tend erness, guarding, rebound, rigid Neurological exam: Present: alert, oriented X3, CN II-XII intact Psychiatric exam: Present: normal affect, normal mood Skin exam: Present: warm, dry, intact, normal color. Absent: rash Course Vital Signs 09/07/21 09/07/21 20:42 22:41 Temperature 97.8 F 98.3 F Pulse Rate 77 62 Respiratory 20 22 Rate Blood Pressure 122/72 109/61 O2 Sat by Pulse 97 97 Oximetry Medical Decision Making - Medical Decision Making This is a 20-year-old well-appearing female who presents to the emergency department requesting a Covid test. States she had a close contact exposure. Upon exam, patient is well-appearing. She is afebrile and not tachypneic nor tachycardic. Patient denies chest pain or shortness of breath. NO increased work of breathing. Pulse ox 98-100% on room air. Covid test was negative. Patient instructed to take extra precautions with her . Return parameters were discussed in detail. Patient verbalizes understanding and agrees with this plan. This patient's care was discussed with my attending Dr. Lee. - Lab Data Lab Results 09/07/21 Range/Units 20:49 Coronavirus (PCR) Not Detected (Not Detectd) Disposition Clinical Impression: Exposure to COVID-19 virus Disposition: HOME SELF-CARE Condition: Stable Instructions (If sedation given, give patient instructions): Normal Exam (ED) Additional Instructions: Please exercise a high degree of caution with a COVID + individual in your home. At this point your test is negative. If you develop symptoms, you may take Tylenol or Motrin for fever or discomfort. Follow-up with your primary care provider for recheck as needed. Return to the emergency department with any new, worsening, or concerning symptoms. Is patient prescribed a controlled substance at d/c from ED?: No Referrals: Deonte Turk DO [Primary Care Provider] - 1-2 days Time of Disposition: 22:30
[2021-09-07 22:41] VITALS: BP 109/61; PULSE 62; RESP 22; TEMP 98.3
== END 2021-09-07 22:41 | disposition home or self-care (01) ==
LOC: EC 20:24
DX: Z20.822 Contact with and (suspected) exposure to COVID-19 (principal); J45.909 Unspecified asthma, uncomplicated; G40.909 Epilepsy, unspecified, not intractable, without status epilepticus; F32.A Depression, unspecified; F41.0 Panic disorder [episodic paroxysmal anxiety]; F43.10 Post-traumatic stress disorder, unspecified; Z87.891 Personal history of nicotine dependence
CPT/HCPCS: 87635; 99282

== ENCOUNTER 2021-09-19 20:59 | Emergency (ER) | payer OTHER ==
[2021-09-19 21:10] VITALS: BP 122/73; PULSE 74; RESP 18; TEMP 98.2
--- NOTE | 2021-09-19 21:45 | ED ---
Recheck HPI - General Chief Complaint: Recheck/Abnormal Lab/Rx Stated Complaint: Covid Test Time Seen by Provider: 09/19/21 21:14 Source: patient Mode of arrival: ambulatory Limitations: no limitations - History of Present Illness Initial Comments: Patient is a 20-year-old female who presents the ER requesting a repeat COVID test. Patient's mother tested positive on September 07, because she lives with her and works with her she was advised she had to quarantine. There work requires a negative COVID test in order to be able to work without a mask and they would prefer to not have to wear mask therefore requesting repeat test. Patient currently asymptomatic no acute complaints. - Related Data Home Medications Medication Instructions Recorded Confirmed Hbe-Wtzk-Fruhr Acid 1 cap PO DAILY 02/06/21 06/29/21 [-U Capsule (formulary)] Previous Rx's Medication Instructions Recorded Ibuprofen [Motrin] 600 mg PO Q6HR PRN #30 tab 06/30/21 Allergies Allergy/AdvReac Type Severity Reaction Status Date / Time carolyn Allergy Swelling Verified 09/19/21 21:09 Review of Systems ROS Statement: Those systems with pertinent positive or pertinent negative responses have been documented in the HPI. ROS Other: All systems not noted in ROS Statement are negative. Past Medical History Past Medical History: Asthma, Seizure Disorder Additional Past Medical History / Comment(s): neuropathy, pt states her last seizure was in 2012 and that was the only one she had. History of Any Multi-Drug Resistant Organisms: None Reported Past Surgical History: No Surgical Hx Reported Past Anesthesia/Blood Transfusion Reactions: No Reported Reaction Past Psychological History: Anxiety, Depression, Panic Disorder, PTSD Smoking Status: Current every day smoker Past Alcohol Use History: Occasional Past Drug Use History: Marijuana - Past Family History Mother Additional Family Medical History / Comment(s): palpitations General Exam - General Exam Comments Initial Comments: Physical Exam GENERAL: Patient is well-developed and well-nourished. Patient is nontoxic and well-hydrated and is in no distress. HENT: Normocephalic, Atraumatic. EYES: PERRL, EOMI PULMONARY: Unlabored respirations. ABDOMEN: Non-distended SKIN: No rashes or bruising : Deferred NEUROLOGIC: Alert and oriented Normal speech Normal gait MUSCULOSKELETAL: Moving all extremities with no apparent injury PSYCHIATRIC: No SI/HI Limitations: no limitations Course Vital Signs 12/13/21 21:07 Temperature 98.2 F Pulse Rate 74 Respiratory 18 Rate Blood Pressure 122/73 O2 Sat by Pulse 98 Oximetry Medical Decision Making - Medical Decision Making She was seen and evaluated, patient requesting repeat coitus, cover test was negative on September 07 she was asymptomatic however lives in a home where her mother and child were symmetric nematic. Repeat over test is negative patient was provided with resultant was discharged home in stable condition. - Lab Data Lab Results 09/19/21 Range/Units 21:14 Coronavirus (PCR) Not Detected (Not Detectd) Disposition Clinical Impression: Lab test negative for COVID-19 virus Disposition: HOME SELF-CARE Condition: Stable Additional Instructions: Clear to return to work Is patient prescribed a controlled substance at d/c from ED?: No Referrals: Deonte Turk DO [Primary Care Provider] - 1-2 days
== END 2021-09-19 21:52 | disposition home or self-care (01) ==
LOC: EC 20:59
DX: Z20.822 Contact with and (suspected) exposure to COVID-19 (principal); J45.909 Unspecified asthma, uncomplicated; F41.9 Anxiety disorder, unspecified; F32.A Depression, unspecified; F43.12 Post-traumatic stress disorder, chronic; F17.200 Nicotine dependence, unspecified, uncomplicated; F12.90 Cannabis use, unspecified, uncomplicated
CPT/HCPCS: 87635; 99282

== ENCOUNTER 2021-10-11 16:16 | Emergency (ER) | payer OTHER ==
[2021-10-11 17:46] VITALS: RESP 16; TEMP 98.2
[2021-10-11] MEDS ORDERED: IBUPROFEN 600 MG TAB PO STA (18:18)
--- NOTE | 2021-10-11 18:25 | ED ---
General Adult HPI - General Chief complaint: Dizziness Stated complaint: Headache Time Seen by Provider: 10/11/21 17:55 Source: patient, RN notes reviewed Mode of arrival: ambulatory Limitations: no limitations - History of Present Illness Initial comments: 20-year-old female presents to the emergency department for evaluation headache and sinus pressure, onset 3 days ago. States she had an episode of dizziness while in the shower on Sunday, but has not had any further issue with that since. Patient states she did take a cold medicine with no improvement in symptoms. Mother had Covid in mid September; patient is concerned about possible infection and wishes to be tested. She is not vaccinated. Good oral intake. Denies fever, chills, chest pain, difficulty breathing, abdominal pain, nausea, vomiting, diarrhea, or dysuria. - Related Data Home Medications Medication Instructions Recorded Confirmed Norelgestromin/Ethin.estradiol 1 patch TRANSDERM JETER 10/11/21 10/11/21 [Xulane 150-35 Mcg/Day Patch] Previous Rx's Medication Instructions Recorded Amoxicillin/Potassium Clav 1 tab PO BID 7 Days #14 tab 10/11/21 [Augmentin 875-125 Tablet] Allergies Allergy/AdvReac Type Severity Reaction Status Date / Time carolyn Allergy Swelling Verified 10/11/21 19:56 Review of Systems ROS Statement: Those systems with pertinent positive or pertinent negative responses have been documented in the HPI. ROS Other: All systems not noted in ROS Statement are negative. Past Medical History Past Medical History: Asthma, Seizure Disorder Additional Past Medical History / Comment(s): neuropathy, pt states her last seizure was in 2012 and that was the only one she had. History of Any Multi-Drug Resistant Organisms: None Reported Past Surgical History: No Surgical Hx Reported Past Anesthesia/Blood Transfusion Reactions: No Reported Reaction Past Psychological History: Anxiety, Depression, Panic Disorder, PTSD Smoking Status: Current every day smoker Past Alcohol Use History: Occasional Past Drug Use History: Marijuana - Past Family History Mother Additional Family Medical History / Comment(s): palpitations General Exam Limitations: no limitations (Well-developed, well-nourished female in no acute distress. Initial temperature 98.2, pulse 58, respirations 16, blood pressure 117/77, pulse ox 100% on room air.) General appearance: alert, in no apparent distress Eye exam: Present: normal appearance, PERRL, EOMI. Absent: scleral icterus, conjunctival injection, periorbital swelling Pupils: Present: normal accommodation ENT exam: Present: mucous membranes moist, TM's normal bilaterally, other (Left sided nasal and frontal sinus tenderness upon palpation) Expanded Throat exam: normal inspection. negative: tonsillar erythema, tonsillomegaly Neck exam: Present: normal inspection. Absent: tenderness, meningismus, lymphadenopathy Respiratory exam: Present: normal lung sounds bilaterally. Absent: respiratory distress, wheezes, rales, rhonchi, stridor Cardiovascular Exam: Present: regular rate, normal rhythm, normal heart sounds. Absent: systolic murmur, diastolic murmur, rubs, gallop, clicks GI/Abdominal exam: Present: soft, normal bowel sounds. Absent: distended, tenderness, guarding, rebound, rigid Neurological exam: Present: alert, oriented X3, CN II-XII intact Expanded Patient oriented to: Present: person, place, time Speech: Present: fluid speech Cranial nerves: EOM's Intact: Normal Motor strength exam: RUE: 5, LUE: 5, RLE: 5, LLE: 5 Eye Response: (4) open spontaneously Motor Response: (6) obeys commands Verbal Response: (5) oriented Ashlee Total: 15 Psychiatric exam: Present: normal affect, normal mood Skin exam: Present: warm, dry, intact, normal color. Absent: rash Course Vital Signs 10/11/21 10/11/21 17:42 20:27 Temperature 98.2 F Pulse Rate 58 L 60 Respiratory 16 16 Rate Blood Pressure 117/77 121/84 O2 Sat by Pulse 100 97 Oximetry Medical Decision Making - Medical Decision Making 20-year-old female presents to the emergency department for evaluation of sinus pressure and dizziness. Upon exam, patient is well-appearing and in no acute distress. Vital signs are stable. Physical exam findings are negative with the exception of tenderness upon palpation of the left frontal and maxillary sinuses. Patient was tested for Covid due to close contact exposure. This result was negative. Patient will be discharged home a prescription for sinusitis and she does not have a primary care provider to follow up with. Return parameters were discussed in detail. Patient verbalizes understanding and agrees with this plan. This patient's care was discussed with my attending Dr. Rivera. - Lab Data Lab Results 10/11/21 Range/Units 18:22 Coronavirus (PCR) Not Detected (Not Detectd) Disposition Clinical Impression: Sinusitis, Lab test negative for COVID-19 virus Disposition: HOME SELF-CARE Condition: Stable Instructions (If sedation given, give patient instructions): Rhinosinusitis (ED) Additional Instructions: You tested negative for Covid. If symptoms persist, test in 3-5 days. Take antibiotic as directed for sinus infection. Warm humidified air may help. Follow-up with your PCP for a recheck in the next 1-2 days. Return to the emergency department with any new, worsening, or concerning symptoms. Prescriptions: Amoxicillin/Potassium Clav [Augmentin 875-125 Tablet] 1 tab PO BID 7 Days #14 tab Is patient prescribed a controlled substance at d/c from ED?: No Referrals: None,Stated [Primary Care Provider] - 1-2 days Time of Disposition: 20:10
[2021-10-11] MEDS ORDERED: AMOXIC-POT CLAV 875-125MG 1 EACH TAB PO STA (20:07)
[2021-10-11 20:30] VITALS: BP 121/84; PULSE 60
== END 2021-10-11 20:29 | disposition home or self-care (01) ==
LOC: EC 16:16
DX: J32.9 Chronic sinusitis, unspecified (principal); Z20.822 Contact with and (suspected) exposure to COVID-19; J45.909 Unspecified asthma, uncomplicated; F17.200 Nicotine dependence, unspecified, uncomplicated; F12.90 Cannabis use, unspecified, uncomplicated
CPT/HCPCS: 87635; 99284

== ENCOUNTER 2021-10-14 11:27 | Emergency (ER) | payer OTHER ==
[2021-10-14 12:07] VITALS: BP 106/75; PULSE 102; RESP 20; TEMP 98.8
[2021-10-14] MEDS ORDERED: ACETAMINOPHEN TAB 325 MG TAB PO STA (12:28)
--- NOTE | 2021-10-14 12:34 | ED ---
General Adult HPI - General Chief complaint: Upper Respiratory Infection Stated complaint: upper respiratory infection-revisit Time Seen by Provider: 10/14/21 12:25 Source: patient, RN notes reviewed, old records reviewed Mode of arrival: ambulatory Limitations: no limitations - History of Present Illness Initial comments: 20-year-old well-appearing female, alert and oriented 4, presents to the emergency room with complaints of sore throat and facial pain since Sunday. Patient states that she was seen in the emergency room and diagnosed with sinus infection. She is taking her Augmentin as prescribed. She states that she is continuing to have low-grade fevers and is concerned for coronavirus. She states that she was tested on Sunday negative. She would like to be tested again today. -: days(s) (5) Location: face (sore throat) Consistency: constant Improves with: none Associated Symptoms: fever/chills, other (facial pain, sore throat) - Related Data Home Medications Medication Instructions Recorded Confirmed Norelgestromin/Ethin.estradiol 1 patch TRANSDERM JETER 10/11/21 10/14/21 [Xulane 150-35 Mcg/Day Patch] Previous Rx's Medication Instructions Recorded Amoxicillin/Potassium Clav 1 tab PO BID 7 Days #14 tab 10/11/21 [Augmentin 875-125 Tablet] Allergies Allergy/AdvReac Type Severity Reaction Status Date / Time carolyn Allergy Anaphylaxis Verified 10/14/21 12:46 Review of Systems ROS Statement: Those systems with pertinent positive or pertinent negative responses have been documented in the HPI. ROS Other: All systems not noted in ROS Statement are negative. Past Medical History Past Medical History: Asthma, Seizure Disorder Additional Past Medical History / Comment(s): neuropathy, pt states her last seizure was in 2012 and that was the only one she had. History of Any Multi-Drug Resistant Organisms: None Reported Past Surgical History: No Surgical Hx Reported Past Anesthesia/Blood Transfusion Reactions: No Reported Reaction Past Psychological History: Anxiety, Depression, Panic Disorder, PTSD Smoking Status: Current every day smoker Past Alcohol Use History: Occasional Past Drug Use History: Marijuana - Past Family History Mother Additional Family Medical History / Comment(s): palpitations General Exam Limitations: no limitations General appearance: alert, in no apparent distress Head exam: Present: atraumatic, normocephalic, normal inspection Eye exam: Present: normal appearance, EOMI, other (Left-sided maxillary sinus pressure). Absent: scleral icterus, conjunctival injection, periorbital swelling ENT exam: Present: normal exam, normal oropharynx, mucous membranes moist Neck exam: Present: normal inspection, full ROM. Absent: meningismus Respiratory exam: Present: normal lung sounds bilaterally. Absent: respiratory distress, wheezes, rales, rhonchi, stridor, chest wall tenderness, accessory muscle use Cardiovascular Exam: Present: regular rate, normal rhythm, normal heart sounds. Absent: systolic murmur, diastolic murmur, rubs, gallop, clicks, JVD GI/Abdominal exam: Present: soft. Absent: distended, tenderness Extremities exam: Present: full ROM, normal capillary refill. Absent: pedal edema Back exam: Present: normal inspection, full ROM. Absent: CVA tenderness (R), CVA tenderness (L), rash noted Neurological exam: Present: alert, oriented X3 Psychiatric exam: Present: normal affect, normal mood Skin exam: Present: warm, dry, intact, normal color. Absent: rash, cyanosis, diaphoretic Course Vital Signs 10/14/21 12:05 Temperature 98.8 F Pulse Rate 102 H Respiratory 20 Rate Blood Pressure 106/75 O2 Sat by Pulse 99 Oximetry Medical Decision Making - Medical Decision Making Well appearing 20-year-old presents to the emergency room with complaints of sore throat and facial pain since Sunday and diagnosed with sinus infection. She is currently taking Augmentin as prescribed. She is requesting to be tested again today for influenza and coronavirus. Vital signs are stable with an oxygen saturation of 99% on room air. She is afebrile in the emergency room. Influenza and coronavirus swabs are negative. Patient will continue the Augmentin as previously prescribed for her sinusitis. She was also directed to use Afrin nasal spray for decongestant. Tylenol and or Motrin for pain and return to the emergency room with any worsening symptoms. Case discussed with Dr. Villatoro - Lab Data Lab Results 10/14/21 Range/Units 14:18 Influenza Type A (PCR) Not Detected (Not Detectd) Influenza Type B (PCR) Not Detected (Not Detectd) RSV (PCR) Not Detected (Not Detectd) SARS-CoV-2 (PCR) Not Detected (Not Detectd) Disposition Clinical Impression: Sinusitis Disposition: HOME SELF-CARE Condition: Good Instructions (If sedation given, give patient instructions): Sinusitis (ED) Additional Instructions: You can use Afrin nasal spray for decongestant. Continue taking antibiotics as previously prescribed, follow-up with your primary care doctor next week. Return to emergency with any new or worsening symptoms. Is patient prescribed a controlled substance at d/c from ED?: No Referrals: None,Stated [Primary Care Provider] - 1-2 days Time of Disposition: 15:44
== END 2021-10-14 16:10 | disposition home or self-care (01) ==
LOC: EC 11:27
DX: J01.90 Acute sinusitis, unspecified (principal); J45.909 Unspecified asthma, uncomplicated; F41.9 Anxiety disorder, unspecified; F32.A Depression, unspecified; F43.12 Post-traumatic stress disorder, chronic; F17.200 Nicotine dependence, unspecified, uncomplicated; F12.90 Cannabis use, unspecified, uncomplicated; Z20.822 Contact with and (suspected) exposure to COVID-19
CPT/HCPCS: 87636; 99283

== ENCOUNTER 2022-02-13 18:33 | Emergency (ER) | payer OTHER ==
[2022-02-13 20:14] VITALS: BP 103/60; PULSE 103; RESP 18; TEMP 100.3
--- NOTE | 2022-02-13 21:07 | ED ---
General Adult HPI - General Chief complaint: Fever Stated complaint: Covid exposure/symptoms Time Seen by Provider: 02/13/22 20:50 Source: patient, RN notes reviewed, old records reviewed Mode of arrival: ambulatory - History of Present Illness Initial comments: 21-year-old female presenting for evaluation of cough, fever, nasal congestion. Patient has come in contact with coronavirus. Her daughter currently has coronavirus. She's had fever, cough. No significant dyspnea. No vomiting. She has had poor appetite. She's otherwise healthy. - Related Data Home Medications Medication Instructions Recorded Confirmed No Known Home Medications 12/26/21 12/26/21 Allergies Allergy/AdvReac Type Severity Reaction Status Date / Time carolyn Allergy Anaphylaxis Verified 02/13/22 20:13 Review of Systems ROS Statement: Those systems with pertinent positive or pertinent negative responses have been documented in the HPI. ROS Other: All systems not noted in ROS Statement are negative. Past Medical History Past Medical History: Asthma, Seizure Disorder Additional Past Medical History / Comment(s): neuropathy, pt states her last seizure was in 2012 and that was the only one she had. History of Any Multi-Drug Resistant Organisms: None Reported Past Surgical History: No Surgical Hx Reported Past Anesthesia/Blood Transfusion Reactions: No Reported Reaction Past Psychological History: Anxiety, Depression, Panic Disorder, PTSD Smoking Status: Current every day smoker Past Alcohol Use History: Occasional Past Drug Use History: Marijuana - Past Family History Mother Additional Family Medical History / Comment(s): palpitations General Exam General appearance: alert, in no apparent distress Head exam: Present: atraumatic, normocephalic Eye exam: Present: normal appearance, PERRL ENT exam: Present: mucous membranes moist Neck exam: Present: normal inspection. Absent: tenderness, meningismus Respiratory exam: Present: normal lung sounds bilaterally. Absent: respiratory distress, wheezes Cardiovascular Exam: Present: regular rate, normal rhythm GI/Abdominal exam: Present: soft. Absent: distended, tenderness Extremities exam: Present: normal inspection, normal capillary refill Neurological exam: Present: alert, oriented X3, CN II-XII intact. Absent: motor sensory deficit Psychiatric exam: Present: normal affect, normal mood Skin exam: Present: warm, dry, intact. Absent: cyanosis, diaphoretic Course Vital Signs 02/13/22 20:09 Temperature 100.3 F H Pulse Rate 103 H Respiratory 18 Rate Blood Pressure 103/60 O2 Sat by Pulse 97 Oximetry Medical Decision Making - Medical Decision Making 21-year-old female presented with illness concerning for coronavirus. She does test positive. She is not a candidate for monoclonal antibodies and is well- appearing without respiratory distress or hypoxia. She is instructed take vitamin C, zinc, vitamin D. She will follow-up with her primary care physician. Return parameters were discussed. She will quarantine. - Lab Data Lab Results 02/13/22 Range/Units 20:15 Coronavirus (PCR) Detected A (Not Detectd) Disposition Clinical Impression: COVID-19 Disposition: HOME SELF-CARE Condition: Fair Instructions (If sedation given, give patient instructions): COVID-19 (Coronavirus Disease 2019) (ED) Additional Instructions: Please take vitamin C, vitamin D and zinc. Please return with worsening or changing symptoms including difficulty breathing. Is patient prescribed a controlled substance at d/c from ED?: No Referrals: None,Stated [Primary Care Provider] - 1-2 days Washington Rice MD [STAFF PHYSICIAN] - 1-2 days Time of Disposition: 21:06
== END 2022-02-13 21:14 | disposition home or self-care (01) ==
LOC: EC 18:33
DX: U07.1 COVID-19 (principal); F17.209 Nicotine dependence, unspecified, with unspecified nicotine-induced disorders; Z91.018 Allergy to other foods
CPT/HCPCS: 87635

== ENCOUNTER 2022-12-25 12:14 | Inpatient (IN) | payer OTHER ==
[2022-12-25] MEDS ORDERED: LIDOCAINE 0.5% (PF) 5 MG/ML (50 ML SDV) SQ PRN (12:35)
[2022-12-25] MEDS ORDERED: TERBUTALINE 1 MG/ML VIAL SQ PRN (12:35)
[2022-12-25] MEDS: LACTATED RINGERS 1,000 ML IV SCH ×3 (12:52→16:43)
[2022-12-25 13:10] LABS: Basophils % (A) 0 %; Eosinophils # (A) 0.2 k/uL (0-0.7); Eosinophils % (A) 2 %; HCT 36.6 % (34.0-46.0); HGB 12.4 gm/dL (11.4-16.0); Lymphocytes # (A) 1.8 k/uL (1.0-4.8); Lymphocytes % (A) 18 %; MCH 30.7 pg (25.0-35.0); MCHC 33.8 g/dL (31.0-37.0); MCV 90.8 fL (80.0-100.0); Mean Platelet Volume 7.9; Monocytes # (A) 0.6 k/uL (0-1.0); Monocytes % (A) 6 %; Neutrophils # (A) 7.4 k/uL (1.3-7.7); Neutrophils % (A) 72 %; Platelet Count 230 k/uL (150-450); RBC 4.03 m/uL (3.80-5.40); RDW 13.2 % (11.5-15.5); WBC 10.3 k/uL (3.8-10.6)
--- NOTE | 2022-12-25 13:26 | P.HPOB ---
History of Present Illness H&P Date: 12/25/22 Chief Complaint: Contractions This is a 22 year old at 39 weeks and 2 days with EDC of 12/30/2022 by LMP c/w 9 wk US who presents to triage with regular, painful contractions. has been uncomplicated. She is feeling normal movement, denies vaginal bleeding, and denies leakage of fluid. Obstetric history: She has had 1 FTVD Maternal serologies: blood type A positive, antibody negative, HIV negative, HBsAg negative, Rubella immune, VDRL non-reactive, GBS negative, 1 hour GTT 65 Past Medical History Past Medical History: Asthma, Seizure Disorder Additional Past Medical History / Comment(s): neuropathy, pt states her last seizure was in 2012 and that was the only one she had. History of Any Multi-Drug Resistant Organisms: None Reported Past Surgical History: No Surgical Hx Reported Past Anesthesia/Blood Transfusion Reactions: No Reported Reaction Past Psychological History: Anxiety, Depression, Panic Disorder, PTSD Smoking Status: Current every day smoker Past Alcohol Use History: Occasional Additional Past Alcohol Use History / Comment(s): pt states she quit 2 weeks ago Past Drug Use History: Marijuana Additional Drug Use History / Comment(s): pt states she quit marijuana 1 month ago. - Past Family History Mother Additional Family Medical History / Comment(s): palpitations Medications and Allergies Home Medications Medication Instructions Recorded Confirmed Type Vit No.179/Iron/Folic 1 tab PO ONCE 12/25/22 12/25/22 History [ Tablet] Allergies Allergy/AdvReac Type Severity Reaction Status Date / Time No Known Allergies Allergy Verified 12/25/22 12:18 Exam Vital Signs Temp Pulse Resp BP Pulse Ox 12/25/22 12:48 97.3 F L 66 16 126/63 99 12/25/22 12:17 97.3 F L 66 16 126/63 99 Intake and Output 12/24/22 12/25/22 12/25/22 22:59 06:59 14:59 Other: Weight 69.853 kg Focused physical exam is performed. Cervix is 5 cm dilation, 90% effaced, and -3 station. Membranes intact. heart tones are Category I. Tocometer is graphing contractions every 3-5 minutes. Results Result Diagrams: 12/25/22 12:52 Assessment and Plan Assessment: 22 year old at 39 weeks and 2 days presenting in labor. Plan: Admit. Start pitocin augmentation. Epidural prn. NPO, mIVF. Continuous EFM. Close monitoring of patient. Time with Patient: Less than 30 (15 minutes)
[2022-12-25] MEDS ORDERED: SODIUM CHLORIDE 0.9% 100 ML BAG ONE (13:40)
[2022-12-25] MEDS ORDERED: ROPIVACAINE 5 MG/ML 20 ML AMPULE ONE (13:40)
[2022-12-25] MEDS ORDERED: fentaNYL (PF) 50 MCG/ML 5 ML AMP ONE (13:40)
[2022-12-25] MEDS ORDERED: ROPIVACAINE 100 MG, fentaNYL (PF). 200 MCG in SODIUM CHLORIDE 0.9% 76 ML EPIDURAL ONE (14:20)
[2022-12-25] MEDS ORDERED: HYDROCORTISONE 2.5% RECTAL CREAM 30 GM TUBE RECTAL PRN (18:02)
[2022-12-25] MEDS ORDERED: diphenhydrAMINE 50 MG/ML 1 ML VIAL IVP PRN ×2 (18:02)
[2022-12-25] MEDS ORDERED: ZOLPIDEM 5 MG TAB PO PRN (18:02)
[2022-12-25] MEDS ORDERED: BENZOCAINE/MENTHOL SPRAY 1 GM/SPRAY AEROSOL TOPICAL PRN (18:02)
[2022-12-25] MEDS ORDERED: SIMETHICONE 80 MG CHEWABLE PO PRN (18:02)
[2022-12-25] MEDS ORDERED: LANOLIN CREAM 5 GM TUBE TOPICAL PRN (18:02)
[2022-12-25] MEDS ORDERED: diphenhydrAMINE 50 MG CAP PO PRN (18:02)
[2022-12-25] MEDS ORDERED: diphenhydrAMINE 25 MG CAP PO PRN (18:02)
--- NOTE | 2022-12-25 18:02 | P.PROBDLV ---
Vaginal Delivery Note - . Vaginal Delivery Note: DATE OF SERVICE: 12/25/2022 PROCEDURE: Spontaneous Vaginal Delivery ATTENDING: Dr. Samreen Velez MD ESTIMATED BLOOD LOSS: 300mL FINDINGS: VFI, Apgars 9/9, weight 7#10oz PROCEDURE: Patient was a 22 y/o at 39 weeks and 2 days who presented to labor and delivery in active labor. Epidural anesthesia was obtained per the patient's request. AROM was undertaken with light meconium noted in the amniotic fluid. The patient quickly progressed to complete dilation. The heart tracing was category I for the majority of her labor with periods of early decelerations and some variable decelerations just before pushing. She moved the head very effectively. Head delivered without difficulty followed by shoulders and body over intact perineum. Infant placed on maternal abdomen and bulb suctioned. Cord was clamped and cut. Cord blood gases and cord blood donation obtained. Placenta delivered whole with gentle cord traction. Oxytocin was started to facilitate uterine tone. Uterine fundus firm and bleeding minimal upon fundal massage. Perineal inspection revealed a small second degree laceration which was repaired in the usual fashion with 2-0 Polysorb. Excellent hemostasis was noted after repair. The patient is stable .
[2022-12-25] MEDS ORDERED: OXYTOCIN 30 UNITS/500 ML NS 30 UNIT in SALINE 1 500ML.BAG IV SCH (18:15)
[2022-12-25] MEDS: IBUPROFEN 600 MG TAB PO PRN (21:14)
[2022-12-25] MEDS: SENNOSIDES-DOCUSATE SODIUM 1 EACH TAB PO SCH (21:15)
[2022-12-26] MEDS: IBUPROFEN 600 MG TAB PO PRN (03:35)
--- NOTE | 2022-12-26 07:13 | P.PNOBGVD ---
Subjective - Subjective Principal diagnosis: normal spontaneous vaginal delivery Interval history: The patient is doing well this morning and had no acute events overnight. She has no complaints this morning. She reports minimal lochia, passing flatus, voiding without difficulty, ambulating, and eating/drinking without nausea or vomiting. She is her without difficulty. She denies chest pain, shortness of breathing, fevers, or chills overnight. She denies pain or s welling in the legs. Patient reports: Reports appetite normal, Reports voiding normally, Reports pain well controlled, Reports ambulating normally : doing well, nursing well Objective - Latest Vital Signs Latest vital signs: Vital Signs Temp Pulse Resp BP Pulse Ox 12/26/22 03:30 97.8 F 76 12 116/66 97 12/26/22 00:00 97.9 F 64 16 118/56 12/25/22 20:00 97.3 F L 70 16 110/73 12/25/22 19:30 67 16 111/70 12/25/22 19:00 61 16 103/57 12/25/22 18:45 63 16 117/62 12/25/22 18:30 68 16 117/77 12/25/22 18:15 60 16 116/78 12/25/22 18:00 97.5 F L 67 16 113/72 12/25/22 12:48 97.3 F L 66 16 126/63 99 12/25/22 12:17 97.3 F L 66 16 126/63 99 Intake and Output 12/25/22 12/26/22 12/26/22 22:59 06:59 14:59 Intake Total 3300 Output Total 977 Balance 2323 Intake: IV 3300 Output: Urine 550 Estimated Blood Loss 300 Output, Quantitative 127 Blood Loss Other: # Voids 1 2 - Exam Extremities: Present: normal Abdomen: Present: normal appearance, soft Uterus: Present: normal, firm Assessment and Plan Assessment: 22 year old now day #1 s/p Plan: Patient meeting milestones appropriately and desires discharge home this afternoon after 24 hours . Infant female doing well at the bedside, nursing well. Discharge instructions reviewed with the patient. Will d/c after 24 hours .
--- NOTE | 2022-12-26 07:17 | P.DS ---
Providers Date of admission: 12/25/22 12:38 Expected date of discharge: 12/26/22 Attending physician: Samreen Velez MD Primary care physician: Stated None Hospital Course: 22 year old now day #1 desiring discharge home today. She presented yesterday morning in active labor. She was admitted, received an epidural per her request, and AROM was performed with light meconium stained fluid noted. She quickly progressed to complete dilation and delivered a viable female . She is now meeting all milestones. Infant at bedside and also doing well. Reviewed that she is on pelvic rest for 6 weeks with nothing in the vagina. Encouraged the patient to call the office for any heavy bleeding, foul-smelling vaginal discharge, breast complaints, or any other concerns. Discussed that starting contraception at 6 weeks will be reviewed and patient states she's interested in Nexplanon. Assessment: 22 year old day #1 s/p Patient Condition at Discharge: Good Plan - Discharge Summary New Discharge Prescriptions: No Action Vit No.179/Iron/Folic [ Tablet] 1 tab PO ONCE Discharge Medication List Vit No.179/Iron/Folic [ Tablet] 1 tab PO ONCE 12/25/22 [History] Follow up Appointment(s)/Referral(s): Samreen Velez MD [STAFF PHYSICIAN] - 6 Weeks Patient Instructions/Handouts: Depression (DC), Perineal Care (DC), Bleeding (DC), Your Baby (DC), Expression, Collection and Storage of Breast Milk (DC), and Nipple Soreness (DC), How to Increase Your Milk Supply (DC), How to Tell if Your Baby is Getting Enough Breast Milk (DC), Vaginal Delivery (DC) Activity/Diet/Wound Care/Special Instructions: Pelvic rest for 6 weeks Discharge Disposition: HOME SELF-CARE
[2022-12-26] MEDS: SENNOSIDES-DOCUSATE SODIUM 1 EACH TAB PO SCH (07:25)
[2022-12-26 07:42] LABS: Basophils % (A) 0 %; Eosinophils # (A) 0.1 k/uL (0-0.7); Eosinophils % (A) 1 %; HCT 32.6 % (34.0-46.0); Lymphocytes # (A) 1.8 k/uL (1.0-4.8); Lymphocytes % (A) 17 %; MCH 30.7 pg (25.0-35.0); MCHC 33.8 g/dL (31.0-37.0); MCV 90.9 fL (80.0-100.0); Mean Platelet Volume 7.9; Monocytes # (A) 0.6 k/uL (0-1.0); Monocytes % (A) 6 %; Neutrophils % (A) 75 %; Platelet Count 188 k/uL (150-450); RBC 3.58 m/uL (3.80-5.40); RDW 13.3 % (11.5-15.5); WBC 10.7 k/uL (3.8-10.6)
[2022-12-26 09:26] VITALS: RESP 16
[2022-12-26] MEDS: ACETAMINOPHEN TAB 325 MG TAB PO PRN ×2 (12:08→17:43)
[2022-12-26 15:31] VITALS: BP 105/62; PULSE 76; TEMP 98.2
== END 2022-12-26 18:30 | disposition home or self-care (01) | DRG 560 ==
LOC: FBPOP 12:14 → 4FBP 12:38
PROVIDERS: ADMIT Obstetrics & Gynecology; ATTEND Obstetrics & Gynecology
PROC: 10E0XZZ Delivery of Products of Conception, External Approach (ICD-10-PCS; principal; 2022-12-25)
PROC: 4A0HXCZ Measurement of Products of Conception, Cardiac Rate, External Approach (ICD-10-PCS; 2022-12-25)
PROC: 0KQM0ZZ Repair Perineum Muscle, Open Approach (ICD-10-PCS; 2022-12-25)
PROC: 10907ZC Drainage of Amniotic Fluid, Therapeutic from Products of Conception, Via Natural or Artificial Opening (ICD-10-PCS; 2022-12-25)
PROC: 3E033VJ Introduction of Other Hormone into Peripheral Vein, Percutaneous Approach (ICD-10-PCS; 2022-12-25)
DX: O76 Abnormality in fetal heart rate and rhythm complicating labor and delivery (principal); F32.A Depression, unspecified; F43.10 Post-traumatic stress disorder, unspecified; F41.0 Panic disorder [episodic paroxysmal anxiety]; F17.210 Nicotine dependence, cigarettes, uncomplicated; G40.909 Epilepsy, unspecified, not intractable, without status epilepticus; J45.909 Unspecified asthma, uncomplicated; O70.1 Second degree perineal laceration during delivery; O99.334 Smoking (tobacco) complicating childbirth; O77.0 Labor and delivery complicated by meconium in amniotic fluid; O99.344 Other mental disorders complicating childbirth; O99.354 Diseases of the nervous system complicating childbirth; O99.52 Diseases of the respiratory system complicating childbirth; Z37.0 Single live birth; Z3A.39 39 weeks gestation of pregnancy
CPT/HCPCS: 59025; 85025; 86850; 86900; 86901; 99213